=== PATIENT | female | born 1945 | race Caucasian/White ===

== ENCOUNTER 2018-02-21 12:03 | Outpatient (CLI) | payer MEDICARE | END 2018-02-21 12:04 | disposition home or self-care (01) | LOC: BICMAMMO 12:03 | PROVIDERS: ATTEND Family Medicine | DX: Z12.31 Encounter for screening mammogram for malignant neoplasm of breast (principal); R92.1 Mammographic calcification found on diagnostic imaging of breast; Z80.3 Family history of malignant neoplasm of breast | CPT/HCPCS: 77063; 77067 ==

== ENCOUNTER 2018-03-02 13:00 | Outpatient (CLI) | payer MEDICARE ==
--- NOTE | 2018-03-02 14:01 | ULT ---
PELVIC ULTRASOUND: Date: 03/02/18 HISTORY: Pelvic pain. Examination was performed transabdominally. The patient did not want endovaginal exam. FINDINGS: The patient has a history of hysterectomy and right oophorectomy. Left ovary is never definitely visu alized on this study. No pelvic masses or fluid collections. The bladder is incompletely distended at the time of this exam. IMPRESSION: Postop hysterectomy change. Neither right nor left ovary identified. POS: [facility]
== END 2018-03-02 13:01 | disposition home or self-care (01) ==
LOC: SCSULT 13:00
PROVIDERS: ATTEND Family Medicine
DX: R10.2 Pelvic and perineal pain (principal); Z90.710 Acquired absence of both cervix and uterus
CPT/HCPCS: 76857

== ENCOUNTER 2018-03-30 13:59 | Observation (INO) | payer MEDICARE ==
--- NOTE | 2018-03-30 14:47 | CT ---
CT HEAD NONCONTRAST DATE: 03/30/18 HISTORY: Altered mental status. COMPARISON: 07/11/08. FINDINGS: There is no evidence of acute intracranial hemorrhage or infarct. Mild diffuse cortical atrophy is ap parent. There is no mass effect or shift of midline structures. Minimal mucosal thickening right maxi llary sinus. IMPRESSION: No acute intracranial abnormalities are demonstrated on noncontrast CT head. POS: [facility]
[2018-03-30 15:01] LABS: ALT (SGPT) 32 U/L (8-55); AST (SGOT) 36 U/L (5-34); Albumin 4.2 g/dL (3.4-4.8); Alkaline Phosphatase 89 U/L (40-150); Anion Gap 17 mmol/L (10-20); BUN (Urea Nitrogen) 15 mg/dL (9.8-20.1); Bilirubin, Total 0.5 mg/dL (0.2-1.2); CK (CPK) 89 U/L (29-168); Calc. Creatinine Clearance 0 mL/min (70-130); Calcium 9.2 mg/dL (7.8-10.44); Carbon Dioxide 23 mmol/L (23-31); Chloride 104 mmol/L (98-107); Estimated GFR-MDRD 77; Globulin 2.8 g/dL (2.4-3.5); Glucose 140 mg/dL (83-110); Potassium 3.7 mmol/L (3.5-5.1); Sodium 140 mmol/L (136-145)
[2018-03-30 15:04] LABS: CKMB 1.6 ng/mL (0-6.6); Troponin I Less than 0.010 ng/mL (< 0.028)
[2018-03-30 15:14] LABS: Hemoglobin 14.1 g/dL (12.0-16.0); Large Platelets SLIGHT; Lymphocytes 35 % (21-51); MDiff Complete? YES; Mean Corpuscular HGB CONC 34.3 g/dL (32.0-36.0); Mean Corpuscular Hemoglobin 31.1 pg (27.0-31.0); Mean Corpuscular Volume 90.6 fl (81.0-99.0); Mean Platelet Volume 9.8 fL (7.4-10.4); Monocytes 8 % (0-10); Neutrophil 56 % (42-75); PLT Morphology Comment Appears Adequate; Platelet Count 144 thou/uL (130-400); RBC Distribution Width 12.1 % (11.5-14.5); Red Blood Cell (RBC) Count 4.55 mill/uL (4.20-5.40); White Blood Cell (WBC) Count 7.2 thou/uL (4.8-10.8)
[2018-03-30 18:03] VITALS: BMI 23.3
[2018-03-30] MEDS ORDERED: Acetaminophen 325 MG TAB PO PRN (19:34)
[2018-03-30] MEDS ORDERED: Zolpidem Tartrate 5 MG TAB PO PRN (19:34)
[2018-03-30] MEDS ORDERED: Enalaprilat Dihydrate 1.25 MG/ML VIAL SLOW IVP PRN (19:34)
[2018-03-30] MEDS ORDERED: HumaLOG 300 UNITS/3 ML VIAL SC PRN ×2 (19:34)
[2018-03-30] MEDS ORDERED: Dextrose 50% Abboject 50 ML SYRINGE SLOW IVP PRN (19:34)
[2018-03-30] MEDS ORDERED: Ondansetron ODT 4 MG TAB PO PRN (19:34)
[2018-03-30] MEDS ORDERED: Dextrose 5% in Water 1,000 ML IV PRN (19:34)
[2018-03-30] MEDS ORDERED: Mag-Al 1200 mg/1200 mg/30 ML UDCUP PO PRN (19:34)
[2018-03-30] MEDS ORDERED: Melatonin 3 MG TAB PO PRN (19:34)
[2018-03-30] MEDS: cycloSPORINE 0.05% Ophthalmic Droperette EA EYE SCH (20:29)
[2018-03-30] MEDS ORDERED: Atorvastatin Calcium 40 MG TAB PO SCH (21:00)
--- NOTE | 2018-03-31 02:31 | HP ---
PRIMARY CARE PHYSICIAN: Dr. Kirsten Murrell. CHIEF COMPLAINT: Heaviness and numbness in the right arm. HISTORY OF PRESENT ILLNESS: Ms. Radford is a very pleasant 72-year-old female who has a history of hypertension as well as diabetes mellitus. She says she also has labile hypertension. She says that her blood pressure was elevated last night and she had been instructed by Dr. Velazquez to take a nifed ipine and additional nifedipine at night when it is elevated. She has been doing this for years and then she woke up this morning and she says shortly after getting up, she felt heaviness in her right arm and discontinued. She took her blood pressure and it was on the lower side, it was 103/60. She took her usual medications and then checked her blood pressure a bit later. It was still low at 105/ 65. She called Dr. Velazquez and by the time his office called back her blood pressure was even lower a t 95/59. Her arm was continuing to feel heavy. She also felt lightheaded and they told her to come to the emergency room for evaluation. In the ER, they did a CT scan of her head, which was negative and have referred her for admission. She denies having any chest pain or palpitations and she denies any weakness in any of her other extremities. REVIEW OF SYSTEMS: Constitutional: There has been no fevers, chills, no night sweats, no weight los s. HEENT: No headaches, but she did feel lightheaded. No sore throat, rhinorrhea, neck pain, no ad enopathy. Pulmonary: No hemoptysis, no cough, no wheezing. Cardiovascular: She denies any chest p ain. No shortness of breath, no PND, no orthopnea. Gastrointestinal: No abdominal pain, no nausea, no vomiting, no change in bowels. Genitourinary: No urinary frequency, hematuria, no hesitancy. N eurologic: As stated in the history of present illness. Skin and Integument: No skin changes. No r mallika. Psychiatric: No symptoms of anxiety or depression. PAST MEDICAL HISTORY: Significant for hypertension, hyperlipidemia, diabetes mellitus, osteoarthriti s, and hypothyroidism. PAST SURGICAL HISTORY: She has had cataract surgery, cholecystectomy, right shoulder surgery, rotato r cuff surgery, and breast biopsy x2. FAMILY HISTORY: Significant for heart disease in her father. SOCIAL HISTORY: She is . She is a former smoker. She quit over 30 [address] ago[address] No illicit dr ug use. She occasionally drinks a glass of beer or wine. MEDICATIONS: Include metformin 500 mg twice a day, Lovaza 2 grams daily, Evista 60 mg daily, Restasi s, levothyroxine 100 mcg daily, nifedipine 30 mg as needed, enalapril 20 mg daily, garlic 1 tablet da subhash, aspirin 81 mg daily, amitriptyline 10 mg daily, and melatonin 3 mg as needed. PHYSICAL EXAMINATION: GENERAL: She is alert and oriented. VITAL SIGNS: Her blood pressure was 142/80 and I checked it manually, heart rate was 68, respiratory rate is 16, temperature is 98.5. HEENT: Her pupils are equal, round, and reactive. Extraocular muscles are intact. Her sclerae anic teric. Throat no erythema, no exudates. NECK: No adenopathy, no bruits. LUNGS: Clear to auscultation. No wheezing, no rales. CARDIOVASCULAR: She had a normal S1, S2. I did not appreciate any S3 or S4. No murmurs, clicks, no rubs. ABDOMEN: Soft, nontender, nondistended. Positive for bowel sounds. There is no rebound or guarding . EXTREMITIES: There is no clubbing, cyanosis, no edema. NEUROLOGICALLY: She had 5/5 muscle strength in both her upper and lower extremities, however, on the right. 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 EXTREMITIES: There is no skin changes, but she did have some trace pedal edema. LABORATORY DATA: Sodium was 140, potassium 3.7, chloride is 104, CO2 is 23, BUN is 15, creatinine 0. 74, glucose was 140. AST was 36. White blood cell count 7.2, hemoglobin 14.1, hematocrit is 41.2, p latelet count is 144. CT scan of the brain was negative and EKG was sinus rhythm and the rate was [address] wave changes. ASSESSMENT AND PLAN: This is a pleasant 72-year-old female who presents with right-sided weakness, w hich is very subtle, but detectable. She has multiple risk factors for cerebrovascular disease. The refore, she will be placed in observation and we will get an MRI to determine whether or not there leigh s been a stroke since her symptoms are persistent and get a carotid Doppler as well as an echo and mo nitor her on telemetry for atrial fibrillation. She will be treated with aspirin daily and we will a lso allow some degree of permissive hypertension and try to avoid excessively low blood pressures. Chuckie foreman will therefore restart her usual medications, but only treat symptomatically for hypertension if th e systolic goes above 180. She will also be placed on a sliding scale insulin. However, we will be holding the metformin and further recommendations will be to follow.
[2018-03-31 04:56] LABS: #Basophils 0.1 thou/uL (0.0-0.2); #Eosinphils 0.3 thou/uL (0.0-0.7); #Monocytes 0.7 thou/uL (0.11-0.59); #Neutrophils 2.3 thou/uL (1.40-6.50); %Basophils 1.3 % (0.0-1.0); %Eosinophils 4.6 % (0.0-10.0); %Lymphocytes 46.7 % (21.0-51.0); %Monocytes 11.7 % (0.0-10.0); %Neutrophils 35.8 % (42.0-75.0); Hemoglobin 13.2 g/dL (12.0-16.0); Mean Corpuscular HGB CONC 33.1 g/dL (32.0-36.0); Mean Corpuscular Hemoglobin 30.3 pg (27.0-31.0); Mean Corpuscular Volume 91.5 fl (81.0-99.0); Mean Platelet Volume 7.9 fL (7.4-10.4); Platelet Count 145 thou/uL (130-400); RBC Distribution Width 11.9 % (11.5-14.5); Red Blood Cell (RBC) Count 4.34 mill/uL (4.20-5.40); White Blood Cell (WBC) Count 6.3 thou/uL (4.8-10.8)
[2018-03-31 05:17] LABS: Anion Gap 12 mmol/L (10-20); BUN (Urea Nitrogen) 12 mg/dL (9.8-20.1); Calc. Creatinine Clearance 73 mL/min (70-130); Calcium 8.7 mg/dL (7.8-10.44); Carbon Dioxide 27 mmol/L (23-31); Cardiac Risk 4.4 (Less than 4.5); Chloride 104 mmol/L (98-107); Cholesterol 173 mg/dl (< 200 Desired); Estimated GFR-MDRD 88; Glucose 123 mg/dL (83-110); HDL Cholesterol 39 mg/dL (>60 Neg Risk); LDL Cholesterol, Calculated 96 mg/dL; Potassium 3.4 mmol/L (3.5-5.1); Sodium 140 mmol/L (136-145); Triglycerides 190 mg/dL (Less than 150)
[2018-03-31] MEDS ORDERED: Levothyroxine Sodium 100 MCG TAB PO SCH (06:00)
[2018-03-31] MEDS ORDERED: Bisoprolol Fumarate/HCTZ 10 mg/6.25 mg Tablet PO SCH (09:00)
[2018-03-31] MEDS ORDERED: Aspirin 325 mg Enteric Coated Tablet PO SCH (09:00)
[2018-03-31] MEDS ORDERED: Enoxaparin Sodium 40 MG/0.4 ML SYRINGE SC SCH (09:00)
[2018-03-31] MEDS ORDERED: Amitriptyline HCl 10 MG TAB PO SCH (09:00)
--- NOTE | 2018-03-31 09:25 | ULT ---
CAROTID DUPLEX SONOGRAM: HISTORY: TIA. Vascular disease. FINDINGS: RIGHT: Color and spectral Doppler evaluation, peak systolic velocity of 89 cm/s, and IC to CC ratio of 1.2 s uggests no hemodynamically significant stenosis within the extracranial right ICA. Antegrade flow wi thin the vertebral artery. LEFT: Minimal plaque. Color and spectral Doppler evaluation, peak systolic velocity of 76 cm/s, and IC to CC ratio of 1.0 suggests no hemodynamically significant stenosis within the extracranial left ICA. A ntegrade flow within the vertebral artery. IMPRESSION: Minimal plaque. No sonographic evidence of significant extracranial internal carotid artery stenosis . POS: [facility]
[2018-03-31] MEDS: cycloSPORINE 0.05% Ophthalmic Droperette EA EYE SCH (10:02)
--- NOTE | 2018-03-31 10:56 | MRI ---
MRI BRAIN: HISTORY: Hypertension. TIAs. FINDINGS: Noncontrast enhanced MRI images brain obtained. Multiplanar, multisequence noncontrast-enhanced MRI images of the brain demonstrate diffuse cortical atrophy. No evidence of acute intracranial masses, hemorrhages, strokes, or contusions seen. Ventricles are o f normal size. IMPRESSION: Some cortical atrophy; otherwise, unremarkable noncontrast enhanced MRI images of the brain. POS: [facility]
[2018-03-31 11:19] VITALS: BP 140/73; TEMP 98.2
--- NOTE | 2018-03-31 12:51 | CON ---
DATE OF CONSULTATION: 03/30/2018 CONSULTING PHYSICIAN: Hospitalist Service. IMPRESSION: 1. Possible small vessel stroke. 2. Hypertension. 3. Hyperlipidemia. PLAN: 1. Continue aspirin. 2. Add statin. 3. MRI of the brain. 4. Review echo and carotid Doppler when available. HISTORY OF PRESENT ILLNESS: She is a 72-year-old white female with a past history of hypertension. She is followed by Dr. Velazquez for this. She awoke yesterday and noted that her blood pressure was lo wer than normal. She also had a sensation that the left arm was heavy and a bit numb. She did not n otice any weakness in the leg or slurred speech. Her symptoms seemed to last throughout the day. Raya foreman came into the hospital for evaluation. Her initial CT scan of the brain was negative. She continu es to have some less significant symptoms today. She denies any recent transient neurologic symptoms otherwise. She had a stroke workup several years ago and reportedly was negative. She does not rep ort any headache, nausea, vomiting, vertigo, double vision, difficulty swallowing or alteration of co nsciousness. PAST MEDICAL HISTORY: Hypertension. ALLERGIES: AMOXICILLIN, LIDOCAINE, DEMEROL. FAMILY HISTORY: Noncontributory. SOCIAL HISTORY: No tobacco or alcohol use. REVIEW OF SYSTEMS: Otherwise, negative. PHYSICAL EXAMINATION: GENERAL: She is a healthy-appearing woman, in no distress. VITAL SIGNS: Blood pressure 134/71, pulse 69, respirations 20, temperature 98.4. HEENT: Pupils equal and reactive. Conjunctivae clear. Oropharynx clear. NECK: Supple, no lymphadenopathy. EXTREMITIES: No cyanosis. NEUROLOGIC: She is alert and appropriate. Her speech is fluent and clear. Cranial nerves were inta ct. Motor exam showed symmetric piece worker strength and no fix or drift. Sensation was subjectively decre ased in the right arm as compared to the left and symmetric. There was equal sensation in the lower extremities. Plantar responses were downgoing. No abnormal movements were seen. Gait was not teste d. LABORATORY STUDIES: CBC and serum chemistries were unremarkable. Her cholesterol ratio was 4.4. Carotid ultrasound, echocardiogram, and MRI of the brain are pending. SUMMARY: This is a 72-year-old woman with past history of hypertension and has some focal complaints on the right side suggesting the possibility of a small vessel stroke. We will review her studies when available.
--- NOTE | 2018-03-31 13:51 | PDOC.PN ---
- Subjective Encounter Start Date: 03/31/18 Encounter Start Time: 13:48 Ms. Radford was seen today in follow-up. She does not have any complaints. she says the heavy feeling in her arm has resolved. No new complaints. - Objective Resuscitation Status: Resuscitation Status FULL:Full Resuscitation MAR Reviewed: Yes Vital Signs & Weight: Vital Signs (12 hours) Temp Pulse Resp BP Pulse Ox 03/31/18 11:09 98.2 F 62 15 140/73 95 03/31/18 08:35 98.4 F 69 20 03/31/18 07:36 98.4 F 69 20 134/71 97 03/31/18 03:16 97.8 F 63 18 135/67 99 Weight Weight 136 lb I&O: 03/30/18 03/31/18 04/01/18 06:59 06:59 06:59 Intake Total 120 Output Total 1200 Balance -1080 Result Diagrams: 03/31/18 04:28 03/31/18 04:28 Additional Labs: Accuchecks 03/31/18 03/31/18 03/30/18 10:31 05:39 20:51 POC Glucose 162 H 112 H 193 H Phys Exam - Physical Examination HEENT: PERRLA Respiratory: no wheezing, no rales, no rhonchi, clear to auscultation bilateral Cardiovascular: RRR, no significant murmur, no rub Gastrointestinal: soft, non-tender, positive bowel sounds Musculoskeletal: no edema Dx/Plan (1) Transient ischemic attack Status: Acute (2) Dyslipidemia Code(s): E78.5 - HYPERLIPIDEMIA, UNSPECIFIED Status: Acute (3) Hypertension Code(s): I10 - ESSENTIAL (PRIMARY) HYPERTENSION Status: Acute - Plan * TIA- MRI was negative, and carotid dopplers were negative for any flow limiting disease * Dyslipidemia- will start Lipitor * HTN- has been well controlled * Stable for discharge home.
--- NOTE | 2018-03-31 20:02 | DIS ---
PRIMARY CARE PHYSICIAN: Kirsten Murrell M.D. DATE OF ADMISSION: 03/30/2018 DATE OF DISCHARGE: 03/31/2018 DISCHARGE DISPOSITION: Home. DISCHARGE DIAGNOSES: 1. Transient ischemic attack. 2. Dyslipidemia. 3. Hypertension. 4. History of osteoarthritis. 5. History of hypothyroidism. DISCHARGE MEDICATIONS: Include aspirin was increased to 325 mg daily, Lipitor 10 mg daily. She is t o continue Ambien 5 mg p.o. at bedtime as needed, Restasis twice a day, Evista 60 mg daily, prednison e 10 mg daily, Lovaza 2 grams daily, nifedipine XL 30 mg as needed, metformin 500 mg twice a day, anastasia atonin 3 mg as needed, levothyroxine 100 mcg daily, garlic 1 tablet daily, gabapentin 100 mg twice a day, enalapril 20 mg daily, Citrucel 500 mg twice daily, Ziac 10/6.25 mg daily, and Lipitor 10 mg danna ly. CODE STATUS: FULL CODE. ALLERGIES: AMOXICILLIN, LIDOCAINE, and MEPERIDINE. PROCEDURES DONE DURING ADMISSION: The patient had a CT scan of the brain, which was negative for any acute intracranial abnormalities. The patient also had bilateral carotid Dopplers, which there was minimal plaque. There was no evidence of any significant stenosis. Also had an MRI of the brain liam wing some cortical atrophy, otherwise negative. HOSPITAL COURSE: Ms. Radford is a very pleasant 72-year-old female, who presented to the emergency room with complaints of heaviness and numbness in the right upper extremity. She also noted some lab ile blood pressures as well. She was brought in under observation and underwent an MRI of the brain, as well as carotid Dopplers and an echocardiogram. MRI was negative for stroke and the carotid Dopp lers did not demonstrate any flow-limiting disease. The echo is pending at the time of discharge. H er symptoms resolved the following day and given the negative MRI results, she will be discharged alfredito e; however, her aspirin dose will be increased to 325 and she will be discharged home on a statin bec ause her LDL was 99. She had some reluctance to use a statin, but says she will go ahead and try it and discuss continuing with Dr. Velazquez. She is to follow up with Dr. Kirsten Murrell in one week.
== END 2018-03-31 14:38 | disposition home or self-care (01) ==
LOC: SCSER 13:59 → 2SE 15:26
PROVIDERS: ADMIT Internal Medicine; ATTEND Internal Medicine
DX: G45.9 Transient cerebral ischemic attack, unspecified (principal); I10 Essential (primary) hypertension; E11.9 Type 2 diabetes mellitus without complications; E78.5 Hyperlipidemia, unspecified; M19.90 Unspecified osteoarthritis, unspecified site; E03.9 Hypothyroidism, unspecified; Z87.891 Personal history of nicotine dependence; Z88.0 Allergy status to penicillin; Z88.8 Allergy status to other drugs, medicaments and biological substances; Z88.5 Allergy status to narcotic agent; Z79.84 Long term (current) use of oral hypoglycemic drugs; Z79.899 Other long term (current) drug therapy; Z79.82 Long term (current) use of aspirin
CPT/HCPCS: 70450; 70551; 80048; 80053; 80061; 82550; 82553; 82962 ×2; 84484; 85025 ×2; 93005; 93306; 93880; 99285; G0378; 36415; 36416; J1650

== ENCOUNTER 2018-07-31 13:32 | Outpatient (CLI) | payer MEDICARE ==
[~2018-07-31 13:32] MED LIST: Iopamidol 370 76% 100 ML VIAL ONE
--- NOTE | 2018-07-31 17:50 | CT ---
CT ABDOMEN AND PELVIS: 07/31/18 HISTORY: Lower abdominal pain. History of diverticulitis. Diarrhea. COMPARISON: 05/12/16. FINDINGS: There is an approximately 9 mm irregular nodular density seen at the right lung base with adjacent li near densities. The nodularity was not appreciated on the prior exam in 2016 although a few linear an d slight reticulonodular densities were present. Lung bases are otherwise clear. Cholecystectomy changes. Right adrenal nodule again seen and stable in size and shown to represent an adrenal adenoma on prior study in 2016. Subcentimeter too small to characterize hypodense lesions are seen in the left kidney. Liver demonstrates diminished attenuation relative to the spleen, likely related to mild fatty infilt ration. The spleen, pancreas, left adrenal gland, right kidney, and incompletely distended urinary bladder de monstrate a normal CT appearance. Vascular calcifications seen in the abdominal aorta. There is evidence of hysterectomy again present. Multiple phleboliths are present in the pelvis. Opacified small bowel is normal in caliber. The appendix is visualized and normal in caliber and fill s a small amount of contrast. There is colonic diverticulosis. No definite colonic wall thickening is appreciated. However, there i s mild inflammatory changes seen within the lower pelvis just superior to the level of the sigmoid co higinio. The exact etiology for mild inflammatory change is uncertain. Early diverticulitis cannot be ent irely excluded. No definite bowel wall thickening is present. There is no free fluid, fluid collectio n, or free intraperitoneal gas seen in the abdomen or pelvis. Degenerative changes seen in the spine. IMPRESSION: 1. There is an irregular nodular density measuring 9 mm in the right lower lobe with adjacent li near densities. There were reticulonodular densities seen in this region on the prior study and this could be related to chronic inflammatory changes, but pulmonary nodule cannot be entirely excluded. F ollowup CT thorax in 4 to 6 months is recommended. 2. Nonspecific and minimal inflammatory stranding in the lower pelvis. There is colonic divertic ulosis, but there are no findings to suggest that this minimal inflammatory stranding is related to d iverticulitis. 3. No CT evidence of appendicitis. 4. Stable right adrenal adenoma. 5. Mild fatty infiltration of the liver. 6. Postsurgical changes related to cholecystectomy and hysterectomy. POS: [facility]
== END 2018-07-31 13:33 | disposition home or self-care (01) ==
LOC: SCSCT 13:32
PROVIDERS: ATTEND Family Medicine
DX: K57.32 Diverticulitis of large intestine without perforation or abscess without bleeding (principal); D35.01 Benign neoplasm of right adrenal gland; R91.8 Other nonspecific abnormal finding of lung field; K76.0 Fatty (change of) liver, not elsewhere classified; Z90.49 Acquired absence of other specified parts of digestive tract; Z90.710 Acquired absence of both cervix and uterus
CPT/HCPCS: 74177

== ENCOUNTER 2019-02-28 13:25 | Outpatient (CLI) | payer MEDICARE ==
--- NOTE | 2019-02-28 14:45 | MMO ---
Bilateral MAMMO Bilat Screen [facility]. CLINICAL HISTORY: Patient is 73 years old and is seen for screening. The patient has the following family history of breast cancer: sister, at age 50. The patient has no personal history of cancer. The patient has a history of right Excisional Biopsy in 2003 - benign and right cyst aspiration in 1998 - benign. VIEWS: The views performed were: bilateral craniocaudal with tomosynthesis and bilateral mediolateral oblique with tomosynthesis. FILMS COMPARED: The present examination has been compared to prior imaging studies performed at [facility] on 11/25/2013, 11/26/2014, 12/29/2015, 12/30/2016 and 02/21/2018. MAMMOGRAM FINDINGS: The breasts are heterogeneously dense, which could obscure a lesion on mammography. There are stable benign appearing calcifications seen in both breasts. There are no suspicious masses, suspicious calcifications, or new areas of architectural distortion. IMPRESSION: THERE IS NO MAMMOGRAPHIC EVIDENCE OF MALIGNANCY. A ROUTINE FOLLOW-UP MAMMOGRAM IN 1 YEAR IS RECOMMENDED. THE RESULTS OF THIS EXAM WERE SENT TO THE PATIENT. ACR BI-RADS Category 2 - Benign finding MAMMOGRAPHY NOTE: 1. A negative mammogram report should not delay a biopsy if a dominant of clinically suspicious mass is present. 2. Approximately 10% to 15% of breast cancers are not detected by mammography. 3. Adenosis and dense breasts may obscure an underlying neoplasm.
== END 2019-02-28 13:26 | disposition home or self-care (01) ==
LOC: BICMAMMO 13:25
PROVIDERS: ATTEND Family Medicine
DX: Z12.31 Encounter for screening mammogram for malignant neoplasm of breast (principal); Z80.3 Family history of malignant neoplasm of breast
CPT/HCPCS: 77063; 77067

== ENCOUNTER 2019-10-22 20:25 | Emergency (ER) | payer MEDICARE ==
[2019-10-22] MEDS ORDERED: Morphine 4 MG/ML VIAL ONE ×2 (21:03→21:31)
[2019-10-22] MEDS ORDERED: Ondansetron PF 4 MG/2 ML Vial ONE ×2 (21:04→22:42)
[2019-10-22 21:10] LABS: #Basophils 0.1 thou/uL (0.0-0.2); #Eosinphils 0.3 thou/uL (0.0-0.7); #Monocytes 0.7 thou/uL (0.11-0.59); #Neutrophils 2.6 thou/uL (1.40-6.50); %Basophils 2.1 % (0.0-1.0); %Eosinophils 5.1 % (0.0-10.0); %Monocytes 12.8 % (0.0-10.0); %Neutrophils 45.1 % (42.0-75.0); Hemoglobin 14.6 g/dL (12.0-16.0); Mean Corpuscular HGB CONC 35.9 g/dL (32.0-36.0); Mean Corpuscular Hemoglobin 32.9 pg (27.0-31.0); Mean Corpuscular Volume 91.8 fL (78.0-98.0); Mean Platelet Volume 7.9 fL (7.4-10.4); Platelet Count 172 thou/uL (130-400); Red Blood Cell (RBC) Count 4.42 mill/uL (4.20-5.40); White Blood Cell (WBC) Count 5.7 thou/uL (4.8-10.8)
[2019-10-22 21:13] LABS: Bacteria/HPF None Seen HPF (None Seen); Bilirubin Negative (Negative); Blood, Urine 2+ (Negative); Clarity Clear (Clear); Glucose, Urine (Dipstick) 70 mg/dL (Negative); Leukocyte Negative Leu/uL (Negative); Mucous/LPF Rare LPF (<2+); Nitrite Negative (Negative); Protein, Urine (Dipstick) 20 mg/dL (Neg-Trace); Squamous Epithelial None Seen HPF (0-3); Urobilinogen Normal mg/dL (Less than 2); WBC/HPF 0-3 HPF (0-3)
--- NOTE | 2019-10-22 21:20 | RAD ---
EXAM: Portable chest PROVIDED CLINICAL HISTORY: Cough COMPARISON: None FINDINGS: Cardiac and mediastinal silhouette is within normal limits. No focal consolidation, pleural fluid or pneumothorax evident. IMPRESSION: No evidence for an acute cardiopulmonary process.
[2019-10-22 21:33] LABS: ALT (SGPT) 19 U/L (8-55); AST (SGOT) 22 U/L (5-34); Albumin 4.4 g/dL (3.4-4.8); Alkaline Phosphatase 84 U/L (40-110); Anion Gap 13 mmol/L (10-20); BUN (Urea Nitrogen) 17 mg/dL (9.8-20.1); Bilirubin, Total 0.3 mg/dL (0.2-1.2); Calc. Creatinine Clearance 0 mL/min (70-130); Calcium 9.1 mg/dL (7.8-10.44); Carbon Dioxide 26 mmol/L (23-31); Chloride 103 mmol/L (98-107); Estimated GFR-MDRD 65; Globulin 2.7 g/dL (2.4-3.5); Glucose 193 mg/dL (83-110); Lipase 33 U/L (8-78); Potassium 3.8 mmol/L (3.5-5.1); Protein, Total 7.1 g/dL (6.0-8.3); Sodium 138 mmol/L (136-145)
--- NOTE | 2019-10-22 22:28 | CT ---
EXAM: CT Stone Protocol PROVIDED CLINICAL HISTORY: Left flank pain COMPARISON: 07/31/2018 FINDINGS: 14 mm pulmonary nodule peripherally within the right lower lobe is demonstrated. This demonstrates in terval increase in size with respect to the prior examination. The solid abdominal organs are suboptimally evaluated in the absence of IV contrast material. There i s mild left hydronephrosis and left hydroureter, with a 4 mm urinary bladder calculus noted. Nonobstructing calculus at the inferior pole of left kidney measures about 4 mm. No evidence for righ t-sided hydronephrosis. There is a stable right adrenal adenoma. The solid abdominal organs demonstrate an otherwise unremark able unenhanced CT appearance. There is no bowel dilatation, inflammatory fat stranding, free fluid or free air apparent. There is n o evidence for appendicitis. Vascular calcifications are seen. Changes of prior cholecystectomy are noted. The osseous structures demonstrate no concerning lytic or blastic lesions. IMPRESSION: 1. 4 mm urinary bladder calculus with residual left hydroureteronephrosis. Nonobstructing left renal calculus. 2. 14 mm right lower lobe pulmonary nodule suspicious for malignancy.
[2019-10-22] MEDS ORDERED: Ketorolac Tromethamine 30 MG/ML VIAL ONE (22:42)
== END 2019-10-22 23:39 | disposition home or self-care (01) ==
LOC: ERS 20:25
DX: N13.2 Hydronephrosis with renal and ureteral calculous obstruction (principal); E11.9 Type 2 diabetes mellitus without complications; E03.9 Hypothyroidism, unspecified; I10 Essential (primary) hypertension
CPT/HCPCS: 71045; 74176; 80053; 81003; 81015; 83690; 85025; 96361; 96374; 96375; 96376; J1885; J2270; J2405

== ENCOUNTER 2020-01-03 08:08 | Outpatient (CLI) | payer MEDICARE ==
--- NOTE | 2020-01-03 09:10 | MRI ---
MRI LUMBAR SPINE NONCONTRAST: HISTORY: Low back pain. COMPARISON: None. FINDINGS: Appropriate T1 marrow signal intensity of the lumbar vertebrae. Lumbar spine vertebral body height is maintained. No fracture. No significant T2 or STIR hyperintensity to suggest ligamentous injury or vertebral body edema from fracture. Intrinsic T1 and T2 hyperintensity at the L1-L2 and L4 vertebral bodies, compatible with osseous sana ngioma. Appropriate signal intensity of the visualized paraspinal muscles. Appropriate signal intensity of th e visualized solid organs, with the exception of the right adrenal gland. Mixed attenuation mass is noted. This lesion has been previously evaluated on a previous noncontrast CT from 10/22/2019. At aly t time, the lesion has attenuation coefficient of 10 Hounsfield units, favoring a benign adenoma. Conus medullaris terminates at the mid L1 level. T12-L1:Adequate disc hydration. Minimal left and right paracentral disc bulges. No significant centra l canal stenosis. Bilaterally, neural foramina are patent. L1-L2:Desiccation with moderate loss of disc space height. Minimal left and right paracentral disc bu lges without significant central canal stenosis. Bilaterally, neural foramina are patent. L2-L3:Adequate disc hydration. No significant loss of disc space height. Minimal left right paracentr al disc bulges, minimal ligament flavum thickening and facet hypertrophy. No significant central canal stenosis. Mild bilateral foraminal narrowing predominantly due to disc material. L3-L4:Adequate disc hydration. Broad-based disc bulge minimally flattens the thecal sac. Mild ligamen t flavum thickening and facet hypertrophy. No significant central canal stenosis. Bilaterally, neural foramina are patent. L4-L5:Adequate disc hydration. No significant loss of disc space height. Broad-based disc bulge, liga ment flavum thickening and facet hypertrophy result in mild central canal stenosis. There is fluid in both facet joints. Mild bilateral neural foraminal narrowing. L5-S1:Adequate disc hydration. No significant central canal stenosis. Mild ligament flavum thickening and facet hypertrophy. Moderate right neural foraminal narrowing. Left neural foramen is mildly narrowed. Based on the sagittal images, there does appear to be a broad-based disc bulge at T11-T12 without sig nificant central canal stenosis. IMPRESSION: 1. Benign adenoma in the right adrenal gland. 2. Degenerative changes lumbar spine as above. No significant central canal stenosis. Moderate right neural foraminal narrowing at L5-S1. Transcribed Date/Time: 01/03/2020 9:32 AM
== END 2020-01-03 08:09 | disposition home or self-care (01) ==
LOC: SCSMRI 08:08
PROVIDERS: ATTEND Neurological Surgery
DX: M54.5 Low back pain (principal); D35.01 Benign neoplasm of right adrenal gland; M47.816 Spondylosis without myelopathy or radiculopathy, lumbar region; M48.07 Spinal stenosis, lumbosacral region
CPT/HCPCS: 72148

== ENCOUNTER 2020-05-04 13:20 | Emergency (ER) | payer MEDICARE, OTHER ==
[2020-05-04] MEDS ORDERED: Ondansetron ODT 4 MG TAB ONE (13:46)
[2020-05-04] MEDS ORDERED: Ondansetron PF 4 MG/2 ML Vial ONE ×2 (13:46→17:28)
[2020-05-04 14:28] LABS: Hemoglobin 14.6 g/dL (12.0-16.0); Mean Corpuscular HGB CONC 32.8 g/dL (32.0-36.0); Mean Corpuscular Hemoglobin 30.7 pg (27.0-31.0); Mean Corpuscular Volume 93.6 fL (78.0-98.0); Mean Platelet Volume 8.3 fL (7.4-10.4); Platelet Count 127 thou/uL (130-400); RBC Distribution Width 12.1 % (11.5-14.5); Red Blood Cell (RBC) Count 4.75 mill/uL (4.20-5.40); White Blood Cell (WBC) Count 3.4 thou/uL (4.8-10.8)
[2020-05-04 14:38] LABS: ALT (SGPT) 33 U/L (8-55); AST (SGOT) 31 U/L (5-34); Albumin 4.1 g/dL (3.4-4.8); Alkaline Phosphatase 55 U/L (40-110); Anion Gap 15 mmol/L (10-20); BUN (Urea Nitrogen) 13 mg/dL (9.8-20.1); Bilirubin, Total 0.3 mg/dL (0.2-1.2); Calc. Creatinine Clearance 0 mL/min (70-130); Calcium 8.7 mg/dL (7.8-10.44); Carbon Dioxide 27 mmol/L (23-31); Chloride 98 mmol/L (98-107); Estimated GFR-MDRD 60; Glucose 102 mg/dL (83-110); Protein, Total 7.1 g/dL (6.0-8.3); Sodium 136 mmol/L (136-145)
[2020-05-04 14:43] LABS: Band 15 % (5-11); Lymphocytes 29 % (21-51); MDiff Complete? YES; Monocytes 11 % (0-10); Neutrophil 44 % (42-75); Platelet Morphology Comment Appears Decreased; RBC Morphology Normal; Reactive Lymphocytes 1 % (0-10)
[2020-05-04] MEDS ORDERED: Acetaminophen 500 MG TAB ONE (15:41)
--- NOTE | 2020-05-04 15:45 | RAD ---
EXAM: Single view of the chest HISTORY: Cough COMPARISON: 10/22/2019 FINDINGS: Single view of the chest shows a normal sized cardiomediastinal silhouette. There is no mckenna dence of consolidation, mass, or pleural effusion. Degenerative changes are seen in the spine. IMPRESSION: No evidence of acute cardiopulmonary disease
[2020-05-04] MEDS ORDERED: Morphine 2 MG/ML SYRINGE ONE (17:27)
[2020-05-04 18:01] LABS: Bacteria/HPF None Seen HPF (None Seen); Bilirubin Negative (Negative); Blood, Urine Negative (Negative); Clarity Clear (Clear); Glucose, Urine (Dipstick) Normal (Negative); Ketone, Urine 40 mg/dL (Negative); Leukocyte Negative Leu/uL (Negative); Nitrite Negative (Negative); Protein, Urine (Dipstick) 30 mg/dL (Neg-Trace); RBC/HPF 0-3 HPF (0-3); Specific Gravity, Urine 1.026 (1.002-1.036); Squamous Epithelial 0-3 HPF (0-3); Urobilinogen Normal mg/dL (Less than 2); WBC/HPF 0-3 HPF (0-3); pH, Urine 5.5 (5.0-9.0)
== END 2020-05-04 20:55 | disposition home or self-care (01) ==
LOC: ERS 13:20
DX: U07.1 COVID-19 (principal); E86.0 Dehydration; E11.9 Type 2 diabetes mellitus without complications; E03.9 Hypothyroidism, unspecified; I10 Essential (primary) hypertension; Z79.899 Other long term (current) drug therapy; Z79.84 Long term (current) use of oral hypoglycemic drugs
CPT/HCPCS: 51701; 71045; 80053; 81003; 81015; 85025; 93005; 96361; 96374; 96375; 96376; J2270; J2405; Q0162

== ENCOUNTER 2020-05-07 10:02 | Inpatient (IN) | payer MEDICARE, OTHER ==
--- NOTE | 2020-05-07 10:41 | RAD ---
XR Chest 1 View Portable History: Cough Comparison: Radiograph 3 days prior Findings: Faint linear opacities in lung bases. No pneumothorax. No effusion. Heart size is similar. No acute osseous abnormality. Impression: Faint linear opacities in lung bases may be the residua of recent COVID-19 infection.
[2020-05-07 11:06] LABS: #Lymphocytes 0.6 thou/uL (1.20-3.40); #Monocytes 0.3 thou/uL (0.11-0.59); #Neutrophils 1.3 thou/uL (1.40-6.50); %Eosinophils 0.5 % (0.0-10.0); %Lymphocytes 26.2 % (21.0-51.0); %Neutrophils 58.3 % (42.0-75.0); Hemoglobin 13.1 g/dL (12.0-16.0); Mean Corpuscular HGB CONC 32.7 g/dL (32.0-36.0); Mean Corpuscular Hemoglobin 31.2 pg (27.0-31.0); Mean Corpuscular Volume 95.2 fL (78.0-98.0); Mean Platelet Volume 7.8 fL (7.4-10.4); Platelet Count 123 thou/uL (130-400); Red Blood Cell (RBC) Count 4.22 mill/uL (4.20-5.40); White Blood Cell (WBC) Count 2.3 thou/uL (4.8-10.8)
[2020-05-07 11:07] LABS: Actual Bicarbonate (HCO3a) 23.6 mEq/L (22-28); Analyzer IN Cardio ER; Base Excess (BEa) -0.4 mEq/L (-2.0 to +3.0); CO2 Tension 36.4 mmHg (35.0-45.0); Hemoglobin (Hb) 13.6 g/dL (12.0-16.0); O2 Tension (PaO2), arterial 61.5 mmHg (> 70.0); Potassium - ABG Lab 3.36 mmol/L (3.70-5.30); pH, Arterial 7.43 (7.35-7.45)
[2020-05-07 11:10] LABS: Puncture Site RRA
[2020-05-07] MEDS ORDERED: Dexamethasone 10 MG/ML VIAL ONE (11:15)
[2020-05-07 11:40] LABS: ALT (SGPT) 37 U/L (8-55); AST (SGOT) 40 U/L (5-34); Albumin 3.5 g/dL (3.4-4.8); Alkaline Phosphatase 51 U/L (40-110); Anion Gap 16 mmol/L (10-20); BUN (Urea Nitrogen) 6 mg/dL (9.8-20.1); Bilirubin, Total 0.2 mg/dL (0.2-1.2); Calc. Creatinine Clearance 0 mL/min (70-130); Calcium 8.1 mg/dL (7.8-10.44); Carbon Dioxide 24 mmol/L (23-31); Chloride 101 mmol/L (98-107); Estimated GFR-MDRD 75; Globulin 2.8 g/dL (2.4-3.5); Glucose 189 mg/dL (83-110); Potassium 3.5 mmol/L (3.5-5.1); Protein, Total 6.3 g/dL (6.0-8.3); Sodium 137 mmol/L (136-145)
[2020-05-07] MEDS ORDERED: Iopamidol 370 76% 100 ML VIAL ONE (12:12)
--- NOTE | 2020-05-07 13:42 | CT ---
CT PULMONARY ANGIOGRAM WITH IV CONTRAST AND 3D POSTPROCESSIN05/07/20 HISTORY: 74-year-old female with worsening symptoms from COVID pneumonia and elevated D-dimer. Patient's husba nd is also positive for COVID-19 and is currently admitted to the hospital. Pulse ox dropped down to 86% at home. FINDINGS: There is good contrast opacification of the pulmonary artery vasculature without filling defects to s uggest pulmonary embolism. There are vascular calcifications without evidence of aneurysm or dissecti on of the thoracic aorta. No pleural or pericardial effusions are seen. There are mild patchy ground glass opacities bilaterally. There are degenerative changes in the spine. Upper abdominal tomograms d emonstrate a 2.3 cm right adrenal adenoma. IMPRESSION: 1. No CT evidence of pulmonary embolism. 2. COVID-19 pneumonia. POS: [facility]
[2020-05-07] MEDS ORDERED: Azithromycin 500 MG VIAL ONE (14:43)
[2020-05-07] MEDS ORDERED: Enoxaparin Sodium 60 MG/0.6 ML SYRINGE ONE (14:43)
[2020-05-07 15:10] LABS: INR-International Normal Ratio 0.9; PTT 33.4 sec (22.9-36.1); Prothrombin Time 12.3 sec (12.0-14.7)
[2020-05-07 15:27] LABS: Lactic Acid 1.9 mmol/L (0.5-2.2)
[2020-05-07 16:35] VITALS: BMI 23.3
[2020-05-07] MEDS ORDERED: Acetaminophen 325 MG TAB PO PRN (18:20)
[2020-05-07] MEDS ORDERED: Acetaminophen 650 MG Suppository PR PRN (18:20)
[2020-05-07] MEDS ORDERED: Dextrose 5% in Water 1,000 ML IV PRN (18:23)
[2020-05-07] MEDS ORDERED: Dextrose 50% Abboject 50 ML SYRINGE SLOW IVP PRN (18:23)
[2020-05-07] MEDS ORDERED: Benzonatate 100 MG CAP PO PRN (19:20)
[2020-05-07] MEDS ORDERED: Amlodipine 5 MG TAB PO PRN (19:42)
[2020-05-07] MEDS: Famotidine 20 MG TAB PO SCH (20:46)
[2020-05-07] MEDS: HumaLOG 300 UNITS/3 ML VIAL SC PRN (20:58)
[2020-05-07 22:39] LABS: Bacteria/HPF None Seen HPF (None Seen); Bilirubin Negative (Negative); Blood, Urine Negative (Negative); Clarity Clear (Clear); Glucose, Urine (Dipstick) Greater than 1000 mg/dL (Negative); Ketone, Urine 80 mg/dL (Negative); Leukocyte Negative Leu/uL (Negative); Nitrite Negative (Negative); Protein, Urine (Dipstick) 10 mg/dL (Neg-Trace); RBC/HPF 0-3 HPF (0-3); Specific Gravity, Urine 1.035 (1.002-1.036); Squamous Epithelial None Seen HPF (0-3); Urobilinogen Normal mg/dL (Less than 2); WBC/HPF 0-3 HPF (0-3); pH, Urine 6.5 (5.0-9.0)
[2020-05-07 22:44] LABS: Urine Culture Reflex No No
[2020-05-08] MEDS ORDERED: Melatonin 3 MG TAB PO PRN (01:18)
[2020-05-08 05:20] LABS: #Lymphocytes 0.8 thou/uL (1.20-3.40); #Monocytes 0.3 thou/uL (0.11-0.59); #Neutrophils 1.4 thou/uL (1.40-6.50); %Eosinophils 0.2 % (0.0-10.0); %Lymphocytes 33.3 % (21.0-51.0); %Monocytes 10.4 % (0.0-10.0); %Neutrophils 56.1 % (42.0-75.0); Hemoglobin 12.2 g/dL (12.0-16.0); Mean Corpuscular HGB CONC 32.6 g/dL (32.0-36.0); Mean Corpuscular Hemoglobin 30.5 pg (27.0-31.0); Mean Corpuscular Volume 93.5 fL (78.0-98.0); Mean Platelet Volume 8.1 fL (7.4-10.4); Platelet Count 139 thou/uL (130-400); RBC Distribution Width 11.9 % (11.5-14.5); Red Blood Cell (RBC) Count 3.99 mill/uL (4.20-5.40); White Blood Cell (WBC) Count 2.4 thou/uL (4.8-10.8)
[2020-05-08 05:32] LABS: Anion Gap 14 mmol/L (10-20); BUN (Urea Nitrogen) 9 mg/dL (9.8-20.1); CRP (Inflammatory) 7.85 mg/dL (= or < 0.5); Calc. Creatinine Clearance 81 mL/min (70-130); Calcium 7.7 mg/dL (7.8-10.44); Carbon Dioxide 26 mmol/L (23-31); Chloride 104 mmol/L (98-107); Estimated GFR-MDRD Greater than 90; Glucose 131 mg/dL (83-110); Potassium 3.5 mmol/L (3.5-5.1); Sodium 140 mmol/L (136-145)
--- NOTE | 2020-05-08 06:07 | HP ---
TIME OF ASSESSMENT: 1800 CHIEF COMPLAINT: Cough and hypoxia. PRIMARY CARE PHYSICIAN: Dr. Kirsten Murrell. HISTORY OF PRESENT ILLNESS: Ms. Radford is a 74-year-old woman, who presents to the emergency department due to having low oxygen levels when checking her sats at home. She had sats of 86% and after a few deep breaths, she could only get it up to 88%. She called her primary care physician, Dr. Murrell, who advised her to come in to the emergency department. The patient's was just recently admitted for COVID. The patient states she has been feeling unwell for the last two weeks with general weakness. Reports having a decreased appetite due to loss of taste and nausea. She has not had anything to eat in the last 2 to 3 days. Denies having any associated vomiting or abdominal discomfort. Reports having episode of loose stools recently, but denies any profuse diarrhea. Has not noted any blood in the stool. Patient reports having a persistent dry cough and becomes mildly short of breath whenever she has coughing fits as well as when she exerts herself. She feels completely drained and weak. She denies any hemoptysis. No chest pain. REVIEW OF SYSTEMS: All other review of systems are negative. EMERGENCY DEPARTMENT COURSE: In the emergent emergency department, she had sats of 94% on room air. She was noted to have a low-grade temperature of 99. She had a chest x-ray done demonstrating faint linear opacities in the lung bases, felt to represent recent COVID-[address] angiogram of the chest was done as well showing no CT evidence for pulmonary embolism. She was noted to have COVID-19 related pneumonia. Incidentally found to have a 2.3 cm right adrenal adenoma. Patient had an EKG done in the ED as well that showed a normal sinus rhythm with a heart rate of 77. No ST changes or T-wave abnormalities. Laboratory studies done were notable for low white count of 2.3, hemoglobin 13.1, and hematocrit 40.2. PT 12.3, INR 0.9, and PTT 33.4. D-dimer 1.22. BUN 6, creatinine 0.75, GFR 75, lactic acid 2.1, total bilirubin 0.2, AST 40, ALT 37, and alk phos 51. BNP 33.1, albumin 3.5. Troponin negative. Potassium 3.5. Blood gas was done showing O2 sat of 92.2, bicarb of 36.4, pH is 7.43. On the blood gas, potassium was 3.36. Patient was started on IV antibiotics with azithromycin and also given Decadron 10 mg IV. She received 1 L of normal saline and was also given Lovenox 1 mg/kg. PAST MEDICAL HISTORY: 1. Hypertension. 2. Diabetes mellitus. 3. Hypothyroidism. PAST SURGICAL HISTORY: 1. Cholecystectomy. 2. Hysterectomy. 3. Right carpal tunnel surgery. 4. Right rotator cuff surgery. 5. Breast biopsy x2. SOCIAL HISTORY: Patient reports drinking socially up to twice a month. Denies any tobacco use. No illicit drug use. ALLERGIES: 1. AMOXICILLIN. 2. DEMEROL. 3. LIDOCAINE. 4. MEPERIDINE. 5. MOXIFLOXACIN. CURRENT MEDICATIONS: 1. Gabapentin. 2. Bisoprolol. 3. Levothyroxine. 4. Raloxifene. 5. Amitriptyline. 6. Metformin. 7. Lisinopril. 8. Amlodipine. 9. Ezetimibe. 10. Aspirin. 11. Cyclobenzaprine. 12. Hydrochlorothiazide. 13. Magnesium. 14. Zofran. PHYSICAL EXAMINATION: GENERAL: Patient appears generally fatigued, but in no acute distress. VITAL SIGNS: Temperature 98.4, pulse 81, respirations 20, sat 96% on room air, and blood pressure 121/58. HEENT: Normocephalic and atraumatic. Pupils are equal, round, reactive to light. Sclerae without icterus. Oropharynx is clear. NECK: Supple. LUNGS: Clear to auscultation bilaterally, without any wheezes, rales, or rhonchi. CARDIAC: Regular rate and rhythm. ABDOMEN: Soft, nontender, and nondistended. Normoactive bowel sounds present. No guarding or rigidity. No renal angle tenderness. EXTREMITIES: No lower leg swelling or edema. NEUROLOGIC: Alert and oriented x3. SKIN: Warm and dry. INVESTIGATIONS: As mentioned above in HPI. IMPRESSION AND PLAN: Ms. Radford is a very pleasant 74-year-old woman, who recently tested positive for COVID and whose was recently discharged from the hospital after being admitted with COVID pneumonia, presenting with a persistent cough and low saturations at home. Patient has undergone imaging in the emergency department demonstrating changes consistent with COVID pneumonia. She is being admitted for management of the followin. Hypoxia. Saturations have improved and she is currently saturating at 96% on room air. As mentioned, CT imaging has shown changes consistent with COVID pneumonia. She has received IV antibiotics in the ED, which we will continue as well as the Decadron. We will add on vitamin C, D3 and zinc. We will check CRP and ferritin with morning labs. Consultation placed to Dr. Mason for further management. 2. Diarrhea. We will continue to monitor. If she has recurrent loose stools, we will check stool studies, including Clostridium difficile. We will add on magnesium to labs obtained. 3. Hypertension. Monitor blood pressure and reconcile home medications as appropriate. 4. Diabetes mellitus. Monitor blood glucose and initiate sliding scale. 5. Hypothyroidism. Resume home medications once verified. 6. Gastrointestinal prophylaxis with famotidine. 7. Deep venous thrombosis prophylaxis with enoxaparin. We will not continue full-dose Lovenox as patient was negative for PE on CT angiogram. 8. Code status. Full. Surrogate decision maker is her , Rickey Radford. Case discussed with attending, who agrees with plan of care as described above. Job ID: [id number]
[2020-05-08] MEDS ORDERED: Aspirin 81 mg Enteric Coated Tablet PO SCH (09:00)
[2020-05-08] MEDS ORDERED: Non-Formulary Item 1 EACH (Magnesium Oxide [Magnesium] 500 MG) PO SCH (09:00)
[2020-05-08] MEDS: Ezetimibe 10 MG TAB PO SCH (09:30)
[2020-05-08] MEDS: Amlodipine 5 MG TAB PO SCH ×2 (09:30→12:54)
[2020-05-08] MEDS: Bisoprolol Fumarate 5 MG TAB PO SCH ×2 (09:30→12:55)
[2020-05-08] MEDS: Cholecalciferol 1,000 UNITS (25 MCG) TAB PO SCH (09:30)
[2020-05-08] MEDS: Enoxaparin Sodium 40 MG/0.4 ML SYRINGE SC SCH ×2 (09:30→20:39)
[2020-05-08] MEDS: Famotidine 20 MG TAB PO SCH ×2 (09:31→20:40)
--- NOTE | 2020-05-08 12:14 | PDOC.HOSPP ---
- Subjective Encounter Date: 05/08/20 Encounter Time: 12:14 Subjective: Patient states she feels tired and was not able to get any sleep last night despite melatonin. Reports sleeping 45 min this morning. Continues with persistent dry cough and occasional coughing fits. Denies any hempotysis. She was afebrile overnight. No other complaints. - Objective Vital Signs & Weight: Vital Signs (12 hours) Temp Pulse Resp BP BP Pulse Ox 05/08/20 10:53 93 L 05/08/20 09:47 99 F 84 20 119/58 L 90 L 05/08/20 04:00 98.5 F 86 18 132/81 95 Weight Admit Weight 128 lb Weight 128 lb I&O: 05/07/20 05/08/20 05/09/20 06:59 06:59 06:59 Intake Total 660 Output Total 600 Balance 60 Result Diagrams: 05/08/20 04:54 05/08/20 04:54 Additional Labs: Accuchecks 05/08/20 05/07/20 05:54 20:56 POC Glucose 123 H 262 H Radiology Reviewed by me: Yes EKG Reviewed by me: Yes Hospitalist ROS - Review of Systems Constitutional: reports: other (fatigued). denies: fever, chills, sweats, weakness, malaise Eyes: denies: pain, vision change, conjunctivae inflammation, eyelid inflammation, redness, other ENT: denies: ear pain, ear discharge, nose pain, nose discharge, nose congestion , mouth pain, mouth swelling, throat pain, throat swelling, other Respiratory: reports: cough, dry, shortness of breath (improved from yesterday) Cardiovascular: denies: chest pain, palpitations, orthopnea, paroxysmal noc. dyspnea, edema, light headedness, other Gastrointestinal: denies: nausea, vomiting, abdominal pain, diarrhea, constipation, melena, hematochezia, other Genitourinary: denies: dysuria, frequency, incontinence, hematuria, retention, other Musculoskeletal: denies: neck pain, shoulder pain, arm pain, back pain, hand pain, leg pain, foot pain, other Skin: denies: rash, lesions, artur, bruising, other Neurological: denies: weakness, numbness, incoordination, change in speech, confusion, seizures, other - Medication Medications: Active Medications Generic Name Dose Route Start Last Admin Trade Name Freq PRN Reason Stop Dose Admin Aspirin 81 mg 05/08/20 09:00 05/08/20 09:30 Ecotrin PO 81 mg DAILY JODY Administration Cholecalciferol 1,000 units 05/08/20 09:00 05/08/20 09:30 Vitamin D3 PO 1,000 units DAILY JODY Administration Ezetimibe 10 mg 05/08/20 09:00 05/08/20 09:30 Zetia PO 10 mg DAILY JODY Administration Enoxaparin Sodium 40 mg 05/08/20 09:00 05/08/20 09:30 Lovenox SC 40 mg 0900,2100 JODY Administration Famotidine 20 mg 05/07/20 21:00 05/08/20 09:31 Pepcid PO 20 mg BID JODY Administration Insulin Human Lispro 0 units 05/07/20 18:23 05/07/20 20:58 Humalog SC 3 unit .BEDTIME SLIDING SC PRN Administration Bedtime Correctional Scale - Exam General Appearance: NAD Eye: PERRL, anicteric sclera ENT: normocephalic atraumatic, no oropharyngeal lesions Neck: supple, symmetric, no lymphadenopathy Heart: RRR, no murmur, normal peripheral pulses Respiratory: CTAB, no wheezes, no rales, no ronchi, normal chest expansion Respiratory - other findings: decreased at bases, unable to take deep breaths due to cough Gastrointestinal: soft, non-tender, non-distended, normal bowel sounds Extremities: no edema Skin: normal turgor, no lesions, no rashes Neurological: cranial nerve grossly intact Musculoskeletal: normal tone, normal strength Psychiatric: normal affect, normal behavior, A&O x 3 Hosp A/P (1) Elevated d-dimer Code(s): R79.89 - OTHER SPECIFIED ABNORMAL FINDINGS OF BLOOD CHEMISTRY Status : Acute Plan: CTA was negative for PE. Likely due to COVID+. Continue DVT prophylaxis and mechanical SCDs. (2) Pneumonia due to COVID-19 virus Code(s): U07.1 - COVID-19; J12.89 - OTHER VIRAL PNEUMONIA Status: Acute Plan: Continue abx and steroids. Awaiting ID consult Will obtain ABG. (3) Diabetes mellitus type 2 in nonobese Code(s): E11.9 - TYPE 2 DIABETES MELLITUS WITHOUT COMPLICATIONS Status: Chronic Plan: Continue home meds. Monitor glucose. ISS. (4) Hypothyroidism Code(s): E03.9 - HYPOTHYROIDISM, UNSPECIFIED Status: Chronic Plan: Continue home meds. (5) Essential hypertension Code(s): I10 - ESSENTIAL (PRIMARY) HYPERTENSION Status: Chronic Plan: Continue to monitor BP. - Plan continue antibiotics, PT/OT, incentive spirometry, DVT proph w/lovenox, DVT proph w/SCDs
[2020-05-08] MEDS: Lisinopril 10 MG TAB PO SCH ×2 (12:32→20:40)
[2020-05-08] MEDS: Gabapentin 100 MG CAP PO SCH ×2 (12:32→20:40)
[2020-05-08] MEDS: Magnesium Oxide 250 MG TAB PO SCH (12:33)
[2020-05-08] MEDS: Amitriptyline HCl 10 MG TAB PO SCH ×2 (12:33→22:30)
[2020-05-08] MEDS: Ascorbic Acid 500 mg Chewable Tablet PO SCH (12:34)
[2020-05-08] MEDS: Zinc Sulfate 220 MG CAP PO SCH (12:34)
[2020-05-08 14:47] LABS: Actual Bicarbonate (HCO3a) 24.6 mEq/L (22-28); Base Excess (BEa) 1.2 mEq/L (-2.0 to +3.0); CO2 Tension 35.2 mmHg (35.0-45.0); Calcium, Ionized (arterial) 1.12 mmol/L (1.12-1.30); Carboxyhemoglobin (COHb) 0.2 gm% (0.0-3.0); Hemoglobin (Hb) 13.3 g/dL (12.0-16.0); O2 Tension (PaO2), arterial 66.7 mmHg (> 70.0); Potassium - ABG Lab 3.15 mmol/L (3.70-5.30); pH, Arterial 7.46 (7.35-7.45)
[2020-05-08 14:48] LABS: Puncture Site RRAD
[2020-05-08] MEDS: Levothyroxine Sodium 100 MCG TAB PO SCH (14:48)
[2020-05-08] MEDS: Benzonatate 100 MG CAP PO SCH ×2 (17:16→20:40)
[2020-05-08] MEDS: Azithromycin 500 MG in Sodium Chloride 0.9% 250 ML 250 ML IVPB SCH (17:17)
[2020-05-08] MEDS: cycloSPORINE 0.05% Ophthalmic Droperette EA EYE SCH (20:41)
[2020-05-08] MEDS: HumaLOG 300 UNITS/3 ML VIAL SC PRN (20:53)
[2020-05-08] MEDS ORDERED: RESTASIS 0.05% EA EYE SCH (21:00)
[2020-05-08] MEDS ORDERED: Amitriptyline HCl 10 MG TAB PO SCH (21:15)
[2020-05-08] MEDS: diphenhydrAMINE 25 MG CAP PO PRN (21:18)
[2020-05-09 04:52] LABS: #Lymphocytes 1.6 thou/uL (1.20-3.40); #Monocytes 0.4 thou/uL (0.11-0.59); #Neutrophils 2.8 thou/uL (1.40-6.50); %Basophils 0.4 % (0.0-1.0); %Eosinophils 0.4 % (0.0-10.0); %Lymphocytes 32.3 % (21.0-51.0); %Monocytes 9.1 % (0.0-10.0); %Neutrophils 57.8 % (42.0-75.0); Hemoglobin 12.2 g/dL (12.0-16.0); Mean Corpuscular HGB CONC 32.1 g/dL (32.0-36.0); Mean Corpuscular Hemoglobin 30.1 pg (27.0-31.0); Mean Corpuscular Volume 93.6 fL (78.0-98.0); Mean Platelet Volume 7.8 fL (7.4-10.4); Platelet Count 196 thou/uL (130-400); RBC Distribution Width 12.1 % (11.5-14.5); Red Blood Cell (RBC) Count 4.05 mill/uL (4.20-5.40); White Blood Cell (WBC) Count 4.8 thou/uL (4.8-10.8)
[2020-05-09 05:08] LABS: Anion Gap 10 mmol/L (10-20); BUN (Urea Nitrogen) 7 mg/dL (9.8-20.1); Calc. Creatinine Clearance 70 mL/min (70-130); Carbon Dioxide 29 mmol/L (23-31); Chloride 105 mmol/L (98-107); Estimated GFR-MDRD Greater than 90; Glucose 91 mg/dL (83-110); Potassium 3.3 mmol/L (3.5-5.1); Sodium 141 mmol/L (136-145)
[2020-05-09] MEDS ORDERED: Potassium Chloride 20 MEQ TAB PO SCH (08:00)
[2020-05-09] MEDS: Enoxaparin Sodium 40 MG/0.4 ML SYRINGE SC SCH ×2 (08:32→21:21)
[2020-05-09] MEDS: Bisoprolol Fumarate 5 MG TAB PO SCH (08:32)
[2020-05-09] MEDS: Magnesium Oxide 250 MG TAB PO SCH (08:32)
[2020-05-09] MEDS: Benzonatate 100 MG CAP PO SCH ×3 (08:32→21:21)
[2020-05-09] MEDS: Zinc Sulfate 220 MG CAP PO SCH (08:33)
[2020-05-09] MEDS: Ezetimibe 10 MG TAB PO SCH (08:33)
[2020-05-09] MEDS: Cholecalciferol 1,000 UNITS (25 MCG) TAB PO SCH (08:33)
[2020-05-09] MEDS: Ascorbic Acid 500 mg Chewable Tablet PO SCH (08:33)
[2020-05-09] MEDS: Amlodipine 5 MG TAB PO SCH (08:34)
[2020-05-09] MEDS: Lisinopril 10 MG TAB PO SCH ×2 (08:34→21:21)
[2020-05-09] MEDS: Gabapentin 100 MG CAP PO SCH ×2 (08:34→21:21)
[2020-05-09] MEDS: Famotidine 20 MG TAB PO SCH ×2 (08:36→21:20)
[2020-05-09] MEDS ORDERED: Dexamethasone 4 mg/ml Vial SLOW IVP SCH (10:00)
[2020-05-09] MEDS ORDERED: Dexamethasone 10 MG/ML VIAL SLOW IVP SCH (10:00)
[2020-05-09] MEDS ORDERED: Ondansetron PF 4 MG/2 ML Vial IVP PRN (10:13)
[2020-05-09] MEDS: Azithromycin 500 MG in Sodium Chloride 0.9% 250 ML 250 ML IVPB SCH ×2 (17:20→22:32)
[2020-05-09] MEDS: HumaLOG 300 UNITS/3 ML VIAL SC PRN (18:02)
[2020-05-09] MEDS: Levothyroxine Sodium 100 MCG TAB PO SCH (18:03)
[2020-05-09] MEDS ORDERED: Amitriptyline HCl 10 MG TAB PO SCH (21:00)
[2020-05-09] MEDS ORDERED: Aspirin 81 mg Enteric Coated Tablet PO SCH (21:00)
[2020-05-09] MEDS: cycloSPORINE 0.05% Ophthalmic Droperette EA EYE SCH (22:03)
[2020-05-09] MEDS ORDERED: Azithromycin 250 MG TAB PO SCH (22:30)
[2020-05-09] MEDS: diphenhydrAMINE 25 MG CAP PO PRN (23:12)
[2020-05-10 05:43] LABS: #Lymphocytes 1.1 thou/uL (1.20-3.40); #Monocytes 0.6 thou/uL (0.11-0.59); #Neutrophils 2.5 thou/uL (1.40-6.50); %Basophils 0.4 % (0.0-1.0); %Eosinophils 0.2 % (0.0-10.0); %Lymphocytes 25.5 % (21.0-51.0); %Monocytes 14.4 % (0.0-10.0); %Neutrophils 59.5 % (42.0-75.0); Anion Gap 12 mmol/L (10-20); BUN (Urea Nitrogen) 12 mg/dL (9.8-20.1); Calc. Creatinine Clearance 65 mL/min (70-130); Calcium 8.3 mg/dL (7.8-10.44); Carbon Dioxide 26 mmol/L (23-31); Chloride 105 mmol/L (98-107); Estimated GFR-MDRD 87; Glucose 163 mg/dL (83-110); Hemoglobin 12.7 g/dL (12.0-16.0); Mean Corpuscular HGB CONC 32.3 g/dL (32.0-36.0); Mean Corpuscular Hemoglobin 30.7 pg (27.0-31.0); Mean Corpuscular Volume 94.8 fL (78.0-98.0); Mean Platelet Volume 7.6 fL (7.4-10.4); Platelet Count 228 thou/uL (130-400); Potassium 4.1 mmol/L (3.5-5.1); RBC Distribution Width 12.1 % (11.5-14.5); Red Blood Cell (RBC) Count 4.13 mill/uL (4.20-5.40); Sodium 139 mmol/L (136-145); White Blood Cell (WBC) Count 4.1 thou/uL (4.8-10.8)
[2020-05-10] MEDS: HumaLOG 300 UNITS/3 ML VIAL SC PRN (06:33)
[2020-05-10] MEDS ORDERED: Azithromycin 250 MG TAB PO SCH (09:00)
[2020-05-10] MEDS ORDERED: metFORMIN 500 MG TAB PO SCH (09:00)
[2020-05-10] MEDS ORDERED: Dexamethasone 4 mg/ml Vial SLOW IVP SCH (09:00)
[2020-05-10] MEDS ORDERED: Cholecalciferol 1,000 UNITS (25 MCG) TAB PO SCH (09:00)
[2020-05-10] MEDS ORDERED: Lactinex Tablet PO SCH (09:00)
[2020-05-10] MEDS: Famotidine 20 MG TAB PO SCH (09:04)
[2020-05-10] MEDS: Bisoprolol Fumarate 5 MG TAB PO SCH (09:04)
[2020-05-10] MEDS: Ascorbic Acid 500 mg Chewable Tablet PO SCH (09:04)
[2020-05-10] MEDS: Ezetimibe 10 MG TAB PO SCH (09:05)
[2020-05-10] MEDS: Amlodipine 5 MG TAB PO SCH (09:05)
[2020-05-10] MEDS: Benzonatate 100 MG CAP PO SCH ×2 (09:05→16:10)
[2020-05-10] MEDS: Cholecalciferol 1,000 UNITS (25 MCG) TAB PO SCH (09:05)
[2020-05-10] MEDS: Gabapentin 100 MG CAP PO SCH (09:05)
[2020-05-10] MEDS: Lisinopril 10 MG TAB PO SCH (09:06)
[2020-05-10] MEDS: Levothyroxine Sodium 100 MCG TAB PO SCH (09:06)
[2020-05-10] MEDS: Enoxaparin Sodium 40 MG/0.4 ML SYRINGE SC SCH (09:09)
[2020-05-10] MEDS: Magnesium Oxide 250 MG TAB PO SCH (12:00)
[2020-05-10] MEDS: Zinc Sulfate 220 MG CAP PO SCH (12:01)
[2020-05-10 13:38] VITALS: TEMP 98.3
[2020-05-10 16:51] VITALS: BP 129/75
--- NOTE | 2020-05-10 21:16 | DIS ---
DATE OF ADMISSION: 05/07/2020 DATE OF DISCHARGE: 05/10/2020 DISCHARGE DIAGNOSES: 1. Acute hypoxic respiratory failure secondary to COVID-19 pneumonia. 2. Leukopenia. CONSULTATIONS: None. PROCEDURES: None. BRIEF HISTORY OF PRESENT ILLNESS: This is a 74-year-old female with past medical history of hypertension, diabetes, and hypothyroidism, who presented to the emergency room due to hypoxia. The patient reported that she had an O2 saturation of 86% and was unable to get it above 88%. The patient reports that she had a daughter and that were recently admitted for COVID. She also reports poor appetite. She had a low-grade temperature of 99 while in the ER. Chest x-ray showed faint linear opacities in the lung bases. CTA showed no evidence of PE. She was admitted for further workup. HOSPITAL COURSE: 1. Acute hypoxic respiratory failure secondary to COVID-19 pneumonia: The patient required 2 L of oxygen while she was in the hospital. She was started on azithromycin and dexamethasone. The patient did very well with this and was eventually able to be weaned off oxygen and was saturating 94% on room air at the time of discharge. She reported minimal cough and no shortness of breath. She also reports that her appetite has improved slightly. She was thought to be stable for discharge and was sent home with azithromycin for 3 more days and dexamethasone for 5 more days. She was advised to quarantine for an additional 4 days at least until her cough resolves. 2. Leukopenia: The patient's white count was 4.1 on 05/10. This is likely secondary to COVID infection. She has no fevers. Her UA was unremarkable. DISCHARGE PHYSICAL EXAMINATION: VITAL SIGNS: Temperature 98.3, heart rate 78, respiratory rate 16, O2 saturation 93% on room air, and blood pressure 129/75. GENERAL: The patient is alert, awake, and oriented x3. CVS: Regular rate and rhythm with no murmurs, rubs, or gallops. LUNGS: The patient has bilateral crackles at the bases. ABDOMEN: Positive bowel sounds. Soft, nontender, and nondistended. EXTREMITIES: No edema. PERTINENT LABORATORY DATA: CBC on 05/10: White count 4.1, hemoglobin 12.7, hematocrit 39.2, and platelet count 228. BMP on 05/10: Normal. LFTs; AST 40, ALT 37, and alkaline phosphatase 51. Troponin I: Less than 0.010. UA: Urine glucose greater than 1000, urine ketones 80. IMAGING DATA: Chest x-ray on 05/07: Faint linear opacities in the lung bases. CTA thorax on 05/07: No evidence of PE. COVID-19 pneumonia. 2.3 cm right adrenal adenoma. DISCHARGE CONDITION: Stable. ACTIVITY: As tolerated. DIET: Regular diet. DISCHARGE MEDICATIONS: 1. Azithromycin 250 mg p.o. daily. 2. Tessalon Perles 100 mg p.o. t.i.d. p.r.n. 3. Dexamethasone 6 mg p.o. daily. The patient's hydrochlorothiazide was discontinued. DISCHARGE INSTRUCTIONS: The patient is to follow up with her PCP in a week. She should get a repeat chest x-ray in 6 weeks and repeat CBC and follow up leukopenia. Also get repeat LFTs to assess for resolution of her elevated LFT. She should also stop her hydrochlorothiazide for now since her blood pressure was 100 systolic without it. Job ID: [id number] MTDD
[2020-05-11] MEDS ORDERED: Dexamethasone 4 MG TAB PO SCH (09:00)
== END 2020-05-10 18:53 | disposition home or self-care (01) | DRG 177 ==
LOC: ERS 10:02 → 2SW 15:20
PROVIDERS: ADMIT Internal Medicine; ATTEND Internal Medicine
PROC: 8E0ZXY6 Isolation (ICD-10-PCS; principal; 2020-05-07)
DX: U07.1 COVID-19 (principal); J12.89 Other viral pneumonia; J96.01 Acute respiratory failure with hypoxia; D72.819 Decreased white blood cell count, unspecified; E11.9 Type 2 diabetes mellitus without complications; E03.9 Hypothyroidism, unspecified; I10 Essential (primary) hypertension; D35.01 Benign neoplasm of right adrenal gland; R19.7 Diarrhea, unspecified; Z90.49 Acquired absence of other specified parts of digestive tract; Z90.710 Acquired absence of both cervix and uterus; Z88.1 Allergy status to other antibiotic agents; Z88.5 Allergy status to narcotic agent; Z88.8 Allergy status to other drugs, medicaments and biological substances; Z79.899 Other long term (current) drug therapy; Z79.890 Hormone replacement therapy; Z79.84 Long term (current) use of oral hypoglycemic drugs
CPT/HCPCS: 36415; 36416; 71045; 71275; 80048; 80053; 81001; 82728; 82805; 83605; 83735; 83880; 84484; 85025; 85379; 85610; 85730; 86140; 93005; J0456; J1100; J1650; J2405; J7050; Q0163; Q9967

== ENCOUNTER 2020-06-19 09:59 | Outpatient (CLI) | payer MEDICARE ==
[2020-06-19 11:03] LABS: Estimated GFR-MDRD - POC Greater than 90
--- NOTE | 2020-06-19 13:07 | CT ---
EXAM: CT OF THE CHEST WITH CONTRAST HISTORY: Lung nodule and adrenal mass seen on prior imaging COMPARISON: 05/07/2020 TECHNIQUE: Multiple contiguous axial images were obtained in a CT the chest with contrast. Coronal an d sagittal reformats were performed. FINDINGS: HEART: Normal in size without focal cardiac abnormality MEDIASTINUM: No hilar or mediastinal lymphadenopathy. LUNGS: No nodules or masses. The previously seen peripheral opacities in the lungs have nearly comple tely resolved. PLEURAL SPACE: No pneumothorax or pleural effusion. CHEST WALL SOFT TISSUES: Unremarkable OSSEOUS STRUCTURES: Degenerative changes in the spine. IMPRESSION: Near complete resolution of previously seen pulmonary infiltrates CT ABDOMEN/PELVIS WITHOUT AND WITH CONTRAST: CLINICAL HISTORY: Lung nodule and adrenal mass seen on prior imaging. TECHNIQUE: Multiple contiguous axial images were obtained and a CT of the abdomen and pelvis without and with IV contrast. Postcontrast images were obtained in the nephrographic and excretory phases. Sagittal and coronal reformats were performed. COMPARISON: 05/07/2020 FINDINGS: Kidneys and Urinary Tract: Right kidney and ureter: No calculi. No hydronephrosis or hydroureter. No renal mass or other lesions . No urothelial lesions: no filling defect, dilation, stricture or wall thickening. Left kidney and ureter: Tiny 2 mm nonobstructing calcifications in the kidney. No hydronephrosis or h ydroureter. No renal mass or other lesions. No urothelial lesions: no filling defect, dilation, stricture or wall thickening. Urinary bladder: Normal, no calculi, mass or other lesions. Remainder of Abdomen and Pelvis: Liver: Normal. Gallbladder and biliary system: Status post cholecystectomy. No biliary ductal dilatation. Spleen: Normal. Pancreas: Normal. Adrenal glands: There is a 2.2 cm right adrenal oval-shaped mass with a mean Hounsfield unit value of 3 on the noncontrast examination. This is consistent with a fat-containing adrenal adenoma. No left adrenal mass. GI tract: Scattered diverticula in the colon. Abdominal aorta and its major branches: Atherosclerotic calcifications. No aneurysm. Peritoneum/retroperitoneum: Normal. No ascites. No adenopathy. Pelvic structures: Status post hysterectomy. No pelvic lymphadenopathy. Body wall and musculoskeletal: Degenerative changes in the spine. IMPRESSION: 1. Nonobstructing left kidney stones 2. Right adrenal adenoma 3. Diverticulosis
== END 2020-06-19 10:00 | disposition home or self-care (01) ==
LOC: BICCT 09:59
PROVIDERS: ATTEND Internal Medicine Pulmonary Disease
DX: E27.8 Other specified disorders of adrenal gland (principal); R91.1 Solitary pulmonary nodule; R91.8 Other nonspecific abnormal finding of lung field; N20.0 Calculus of kidney; K57.90 Diverticulosis of intestine, part unspecified, without perforation or abscess without bleeding
CPT/HCPCS: 71260; 74178; 82565

== ENCOUNTER 2020-09-23 09:54 | Outpatient (CLI) | payer MEDICARE ==
--- NOTE | 2020-09-23 10:38 | MMO ---
Bilateral MAMMO Bilat Diag DDI+ANNMARIE. CLINICAL HISTORY: Patient is 74 years old and is seen for diagnostic exam. The patient has the following family history of breast cancer: sister, at age 50. The patient has no personal history of cancer. The patient has a history of right Excisional Biopsy in 2003 - benign and right cyst aspiration in 1998 - benign. VIEWS: The views performed were: bilateral craniocaudal with tomosynthesis; bilateral mediolateral oblique with tomosynthesis; and bilateral mediolateral with tomosynthesis. FILMS COMPARED: The present examination has been compared to prior imaging studies performed at [facility] on 12/30/2016, 02/21/2018, 02/28/2019 and 09/23/2020. This study has been interpreted with the assistance of computer-aided detection. MAMMOGRAM FINDINGS: The breasts are heterogeneously dense, which could obscure a lesion on mammography. Benign calcifications are noted bilaterally. No mammographic or sonograhic abnormality is seen at the site of pain in the right breast. There are no suspicious masses, suspicious calcifications, or new areas of architectural distortion. IMPRESSION: THERE IS NO MAMMOGRAPHIC EVIDENCE OF MALIGNANCY. A ROUTINE FOLLOW-UP MAMMOGRAM IN 1 YEAR IS RECOMMENDED. THE RESULTS OF THIS EXAM WERE SENT TO THE PATIENT. ACR BI-RADS Category 2 - Benign finding MAMMOGRAPHY NOTE: 1. A negative mammogram report should not delay a biopsy if a dominant of clinically suspicious mass is present. 2. Approximately 10% to 15% of breast cancers are not detected by mammography. 3. Adenosis and dense breasts may obscure an underlying neoplasm. Reported by: MELVIN BROOKS MD Electonically Signed: [id number]
--- NOTE | 2020-09-23 11:00 | ULT ---
LIMITED RIGHT BREAST ULTRASOUND: HISTORY: Pain in the right breast. FINDINGS: Correlation is made with mammograms of the same date. Sonographic evaluation of the region of pain at the 7, 8, 9, 10, and 11 o'clock positions demonstrate s no abnormality. IMPRESSION: BIRADS category 2 - benign findings. Return to annual mammographic screening. POS: OFF
== END 2020-09-23 09:55 | disposition home or self-care (01) ==
LOC: BICMAMMO 09:54
PROVIDERS: ATTEND Family Medicine
DX: N64.4 Mastodynia (principal)
CPT/HCPCS: 76642; 77066; G0279

== ENCOUNTER 2021-03-19 10:40 | Outpatient (CLI) | payer MEDICARE | END 2021-03-19 10:41 | disposition home or self-care (01) | LOC: BICRAD 10:40 | PROVIDERS: ATTEND Family Medicine | DX: R05 Cough (principal) | CPT/HCPCS: 71046 ==

== ENCOUNTER 2021-09-14 11:26 | Outpatient (CLI) | payer MEDICARE | END 2021-09-14 11:27 | disposition home or self-care (01) | LOC: BICRAD 11:26 | PROVIDERS: ATTEND Family Medicine | DX: M54.6 Pain in thoracic spine (principal); M47.814 Spondylosis without myelopathy or radiculopathy, thoracic region | CPT/HCPCS: 71046; 72072 ==

== ENCOUNTER 2021-09-27 14:27 | Outpatient (CLI) | payer MEDICARE | END 2021-09-27 14:28 | disposition home or self-care (01) | LOC: BICMAMMO 14:27 | PROVIDERS: ATTEND Family Medicine | DX: M85.851 Other specified disorders of bone density and structure, right thigh (principal); M85.852 Other specified disorders of bone density and structure, left thigh | CPT/HCPCS: 77080 ==

== ENCOUNTER 2021-11-05 14:15 | Observation (INO) | payer MEDICARE ==
[2021-11-05 15:32] LABS: #Basophils 0.1 thou/uL (0.0-0.2); #Eosinphils 0.4 thou/uL (0.0-0.7); #Monocytes 0.7 thou/uL (0.11-0.59); #Neutrophils 3.8 thou/uL (1.40-6.50); %Basophils 1.7 % (0.0-1.0); %Eosinophils 4.8 % (0.0-10.0); %Monocytes 8.2 % (0.0-10.0); %Neutrophils 47.3 % (42.0-75.0); Hemoglobin 14.9 g/dL (12.0-16.0); Mean Corpuscular HGB CONC 33.8 g/dL (32.0-36.0); Mean Corpuscular Hemoglobin 34.5 pg (27.0-31.0); Mean Platelet Volume 7.3 fL (7.4-10.4); Platelet Count 231 thou/uL (130-400); RBC Distribution Width 12.6 % (11.5-14.5); Red Blood Cell (RBC) Count 4.32 mill/uL (4.20-5.40)
[2021-11-05 15:56] LABS: ALT (SGPT) 21 U/L (8-55); AST (SGOT) 17 U/L (5-34); Albumin 4.2 g/dL (3.4-4.8); Alkaline Phosphatase 72 U/L (40-110); Anion Gap 15 mmol/L (10-20); BUN (Urea Nitrogen) 15 mg/dL (9.8-20.1); Bilirubin, Total 0.3 mg/dL (0.2-1.2); Calc. Creatinine Clearance 0 mL/min (70-130); Carbon Dioxide 30 mmol/L (23-31); Chloride 100 mmol/L (98-107); Globulin 3.3 g/dL (2.4-3.5); Glucose 102 mg/dL (83-110); Lipase 41 U/L (8-78); Potassium 3.7 mmol/L (3.5-5.1); Protein, Total 7.5 g/dL (5.8-8.1); Sodium 141 mmol/L (136-145)
[2021-11-05 20:42] LABS: Troponin I Less than 0.010 ng/mL (< 0.028)
[2021-11-05 22:56] VITALS: BMI 23.3
[2021-11-05 23:47] LABS: Troponin I Less than 0.010 ng/mL (< 0.028)
[2021-11-06] MEDS ORDERED: Gabapentin 300 MG CAP PO SCH (00:45)
[2021-11-06] MEDS ORDERED: Acetaminophen 325 MG TAB PO PRN (05:34)
[2021-11-06] MEDS ORDERED: Ondansetron PF 4 MG/2 ML Vial IVP PRN (05:34)
[2021-11-06] MEDS ORDERED: Nitroglycerin 0.4 MG TAB (25 Tab Bottle) SL PRN (05:34)
[2021-11-06] MEDS ORDERED: Dextrose 50% Abboject 50 ML SYRINGE SLOW IVP PRN (05:40)
[2021-11-06] MEDS ORDERED: HumaLOG 300 UNITS/3 ML VIAL SC PRN ×2 (05:40)
[2021-11-06] MEDS ORDERED: Dextrose 5% in Water 1,000 ML IV PRN (05:40)
[2021-11-06] MEDS ORDERED: Amlodipine 5 MG TAB PO PRN (05:43)
[2021-11-06 06:09] LABS: #Basophils 0.1 thou/uL (0.0-0.2); #Eosinphils 0.4 thou/uL (0.0-0.7); #Lymphocytes 3.6 thou/uL (1.20-3.40); #Monocytes 0.6 thou/uL (0.11-0.59); #Neutrophils 2.6 thou/uL (1.40-6.50); %Basophils 1.1 % (0.0-1.0); %Eosinophils 6.1 % (0.0-10.0); %Monocytes 8.5 % (0.0-10.0); %Neutrophils 35.4 % (42.0-75.0); Mean Corpuscular HGB CONC 33.7 g/dL (32.0-36.0); Mean Corpuscular Hemoglobin 34.9 pg (27.0-31.0); Mean Platelet Volume 7.2 fL (7.4-10.4); Platelet Count 208 thou/uL (130-400); RBC Distribution Width 12.5 % (11.5-14.5); Red Blood Cell (RBC) Count 3.73 mill/uL (4.20-5.40); White Blood Cell (WBC) Count 7.3 thou/uL (4.8-10.8)
[2021-11-06 06:27] LABS: Anion Gap 15 mmol/L (10-20); BUN (Urea Nitrogen) 15 mg/dL (9.8-20.1); Calc. Creatinine Clearance 58 mL/min (70-130); Calcium 8.7 mg/dL (7.8-10.44); Carbon Dioxide 26 mmol/L (23-31); Chloride 103 mmol/L (98-107); Glucose 141 mg/dL (83-110); Potassium 3.8 mmol/L (3.5-5.1); Sodium 140 mmol/L (136-145)
[2021-11-06 06:42] LABS: Cardiac Risk 3.9 (Less than 4.5)
[2021-11-06] MEDS ORDERED: Enoxaparin Sodium 40 MG/0.4 ML SYRINGE SC SCH (09:00)
[2021-11-06] MEDS ORDERED: Amlodipine 5 MG TAB PO SCH (09:00)
[2021-11-06] MEDS ORDERED: Bisoprolol Fumarate 5 MG TAB PO SCH (09:00)
[2021-11-06] MEDS ORDERED: Aspirin 81 mg Enteric Coated Tablet PO SCH (09:00)
[2021-11-06] MEDS ORDERED: Amitriptyline HCl 10 MG TAB PO SCH (09:00)
[2021-11-06] MEDS ORDERED: Ezetimibe 10 MG TAB PO SCH (09:00)
[2021-11-06] MEDS ORDERED: ADENOSINE 60 MG/20 ML VIAL ONE (12:54)
[2021-11-06 15:43] VITALS: BP 126/66; TEMP 98.2
== END 2021-11-06 17:15 | disposition home or self-care (01) ==
LOC: ERS 14:15 → NEURO 17:21
PROVIDERS: ADMIT Family Medicine; ATTEND Family Medicine
DX: R07.89 Other chest pain (principal); M25.512 Pain in left shoulder; I10 Essential (primary) hypertension; E11.9 Type 2 diabetes mellitus without complications; E03.9 Hypothyroidism, unspecified; Z87.891 Personal history of nicotine dependence; Z79.810 Long term (current) use of selective estrogen receptor modulators (SERMs); Z79.82 Long term (current) use of aspirin; Z79.84 Long term (current) use of oral hypoglycemic drugs; Z79.899 Other long term (current) drug therapy; Z88.0 Allergy status to penicillin; Z88.1 Allergy status to other antibiotic agents; Z88.4 Allergy status to anesthetic agent; Z88.5 Allergy status to narcotic agent
CPT/HCPCS: 71045; 78452; 80048; 80053; 80061; 82962; 83690; 84484 ×2; 85025 ×2; 93005; 93017; A9500; G0378 ×3; 36415; 36416; J0153

== ENCOUNTER 2022-07-21 07:51 | Outpatient (CLI) | payer MEDICARE | END 2022-07-21 07:52 | disposition home or self-care (01) | LOC: BICMRI 07:51 | PROVIDERS: ATTEND Nurse Practitioner Family | DX: M51.14 Intervertebral disc disorders with radiculopathy, thoracic region (principal); M51.25 Other intervertebral disc displacement, thoracolumbar region | CPT/HCPCS: 72146 ==

== ENCOUNTER 2023-01-03 10:33 | Outpatient (CLI) | payer MEDICARE | END 2023-01-03 10:34 | disposition home or self-care (01) | LOC: NM 10:33 | PROVIDERS: ATTEND Specialist | DX: M17.11 Unilateral primary osteoarthritis, right knee (principal); T84.84XA Pain due to internal orthopedic prosthetic devices, implants and grafts, initial encounter; Z96.651 Presence of right artificial knee joint | CPT/HCPCS: 78315; A9503 ==

== ENCOUNTER 2023-02-23 11:10 | Outpatient (CLI) | payer MEDICARE | END 2023-02-23 11:11 | disposition home or self-care (01) | LOC: BICMRI 11:10 | PROVIDERS: ATTEND Nurse Practitioner Family | DX: M47.816 Spondylosis without myelopathy or radiculopathy, lumbar region (principal); M54.14 Radiculopathy, thoracic region; M51.24 Other intervertebral disc displacement, thoracic region; M51.35 Other intervertebral disc degeneration, thoracolumbar region; M48.05 Spinal stenosis, thoracolumbar region; M48.061 Spinal stenosis, lumbar region without neurogenic claudication; M51.36 Other intervertebral disc degeneration, lumbar region | CPT/HCPCS: 72146; 72148 ==

== ENCOUNTER 2023-06-01 19:40 | Inpatient (IN) | payer MEDICARE ==
[~2023-06-01 19:40] MED LIST changes: -Iopamidol 370 76% 100 ML VIAL ONE; +Iopamidol-370 76% 500 ML MDV (1 ML CHARGE) ONE
[2023-06-01 20:17] LABS: #Basophils 0.1 thou/uL (0.0-0.2); #Eosinphils 0.2 thou/uL (0.0-0.7); #Monocytes 0.5 thou/uL (0.11-0.59); %Eosinophils 3.8 % (0.0-10.0); %Lymphocytes 21.4 % (21.0-51.0); %Monocytes 8.5 % (0.0-10.0); %Neutrophils 64.6 % (42.0-75.0); Hematocrit 35.5 % (36.0-47.0); Hemoglobin 11.8 g/dL (12.0-16.0); Mean Corpuscular HGB CONC 33.2 g/dL (32.0-36.0); Mean Corpuscular Hemoglobin 33.3 pg (27.0-31.0); Mean Corpuscular Volume 100.3 fl (78.0-98.0); Mean Platelet Volume 9.4 fL (7.4-10.4); Platelet Count 214 10x3/uL (130-400); RBC Distribution Width 14.8 % (11.5-14.5); Red Blood Cell (RBC) Count 3.54 mill/uL (4.20-5.40); White Blood Cell (WBC) Count 6.1 10x3/uL (4.8-10.8)
[2023-06-01 20:41] LABS: ALT (SGPT) 18 U/L (8-55); AST (SGOT) 21 U/L (5-34); Alkaline Phosphatase 58 U/L (40-110); Anion Gap 14 mmol/L (10-20); BUN (Urea Nitrogen) 9 mg/dL (9.8-20.1); Bilirubin, Total 0.6 mg/dL (0.2-1.2); Calc. Creatinine Clearance 0 mL/min (70-130); Carbon Dioxide 25 mmol/L (23-31); Chloride 102 mmol/L (98-107); Estimated GFR 86; Globulin 2.9 g/dL (2.4-3.5); Glucose 218 mg/dL (83-110); Potassium 4.1 mmol/L (3.5-5.1); Protein, Total 6.9 g/dL (5.8-8.1); Sodium 137 mmol/L (136-145)
[2023-06-01 20:51] LABS: Troponin I Less than 0.010 ng/mL (< 0.028)
[2023-06-01 22:23] LABS: Bacteria/HPF None Seen HPF (None Seen); Bilirubin Negative (Negative); Blood, Urine Negative (Negative); CAUTI Indications for Culture Alt mental st,lethar; Clarity Clear (Clear); Glucose, Urine (Dipstick) 200 mg/dL (Negative); Ketone, Urine 20 mg/dL (Negative); Leukocyte Negative Leu/uL (Negative); Nitrite Negative (Negative); Protein, Urine (Dipstick) Negative (Neg-Trace); RBC/HPF 0-3 HPF (0-3); Specific Gravity, Urine 1.012 (1.002-1.036); Squamous Epithelial None Seen HPF (0-3); Urobilinogen Normal mg/dL (Less than 2); WBC/HPF 0-3 HPF (0-3); pH, Urine 6.5 (5.0-9.0)
[2023-06-01 22:24] LABS: Urine Culture Reflex No No
[2023-06-01 23:25] LABS: Lactic Acid 2.4 mmol/L (0.5-2.2)
[2023-06-01] MEDS ORDERED: Famotidine 20 MG TAB ONE (23:33)
[2023-06-02] MEDS ORDERED: HYDROcodone/Acetaminophen 5/325 mg Tablet ONE (01:14)
[2023-06-02] MEDS ORDERED: Ondansetron ODT 4 MG TAB PO PRN (04:22)
[2023-06-02] MEDS ORDERED: Acetaminophen 325 MG TAB PO PRN (04:22)
[2023-06-02] MEDS ORDERED: Acetaminophen 650 MG Suppository PR PRN (04:22)
[2023-06-02] MEDS ORDERED: Ondansetron PF 4 MG/2 ML Vial IVP PRN (04:22)
[2023-06-02] MEDS ORDERED: Glucagon 1 MG/ML KIT IM PRN (04:26)
[2023-06-02] MEDS ORDERED: HumaLOG 300 UNITS/3 ML VIAL SC PRN ×2 (04:26)
[2023-06-02] MEDS ORDERED: Dextrose 50% Abboject 50 ML SYRINGE SLOW IVP PRN (04:26)
[2023-06-02] MEDS ORDERED: Dextrose 5% in Water 1,000 ML IV PRN (04:26)
[2023-06-02 05:53] VITALS: BMI 21.8
[2023-06-02] MEDS ORDERED: Iopamidol 370 76% 100 ML VIAL ONE (09:30)
[2023-06-02] MEDS ORDERED: Mag-Al Plus 1200 MG/1200 MG/120 MG/30 ML UDCUP PO PRN (09:44)
[2023-06-02] MEDS ORDERED: Pantoprazole 40 MG VIAL IVP SCH (10:00)
[2023-06-02] MEDS ORDERED: ALPRAZolam 0.5 MG TAB PO PRN (10:04)
[2023-06-02 10:31] LABS: #Basophils 0.1 thou/uL (0.0-0.2); #Eosinphils 0.1 thou/uL (0.0-0.7); #Monocytes 0.6 thou/uL (0.11-0.59); #Neutrophils 4.7 thou/uL (1.40-6.50); %Basophils 0.7 % (0.0-1.0); %Eosinophils 1.9 % (0.0-10.0); %Lymphocytes 23.9 % (21.0-51.0); %Monocytes 8.8 % (0.0-10.0); %Neutrophils 64.1 % (42.0-75.0); Hematocrit 37.4 % (36.0-47.0); Hemoglobin 12.4 g/dL (12.0-16.0); Mean Corpuscular HGB CONC 33.2 g/dL (32.0-36.0); Mean Corpuscular Hemoglobin 32.7 pg (27.0-31.0); Mean Corpuscular Volume 98.7 fl (78.0-98.0); Mean Platelet Volume 9.8 fL (7.4-10.4); Platelet Count 206 10x3/uL (130-400); RBC Distribution Width 14.6 % (11.5-14.5); Red Blood Cell (RBC) Count 3.79 mill/uL (4.20-5.40); White Blood Cell (WBC) Count 7.3 10x3/uL (4.8-10.8)
[2023-06-02 10:33] LABS: PTT 34.4 sec (22.9-36.1)
[2023-06-02] MEDS ORDERED: Lidocaine 1% (PF) 30 ML VIAL ONE (13:49)
[2023-06-02] MEDS: HYDROcodone/Acetaminophen 5/325 mg Tablet PO PRN ×2 (15:50→21:05)
[2023-06-02 16:03] LABS: Hematocrit 36.7 % (36.0-47.0); Hemoglobin 12.4 g/dL (12.0-16.0); Mean Corpuscular HGB CONC 33.8 g/dL (32.0-36.0); Mean Corpuscular Hemoglobin 33.5 pg (27.0-31.0); Mean Corpuscular Volume 99.2 fl (78.0-98.0); Mean Platelet Volume 9.4 fL (7.4-10.4); Platelet Count 203 10x3/uL (130-400); RBC Distribution Width 14.8 % (11.5-14.5); White Blood Cell (WBC) Count 6.8 10x3/uL (4.8-10.8)
[2023-06-02] MEDS: Pantoprazole 40 MG VIAL IVP SCH (21:05)
[2023-06-03 03:58] LABS: #Basophils 0.1 thou/uL (0.0-0.2); #Eosinphils 0.2 thou/uL (0.0-0.7); #Monocytes 0.7 thou/uL (0.11-0.59); #Neutrophils 2.6 thou/uL (1.40-6.50); %Basophils 1.2 % (0.0-1.0); %Eosinophils 3.9 % (0.0-10.0); %Lymphocytes 36.8 % (21.0-51.0); %Monocytes 11.7 % (0.0-10.0); Hematocrit 36.5 % (36.0-47.0); Hemoglobin 12.1 g/dL (12.0-16.0); Mean Corpuscular HGB CONC 33.2 g/dL (32.0-36.0); Mean Corpuscular Hemoglobin 33.5 pg (27.0-31.0); Mean Corpuscular Volume 101.1 fl (78.0-98.0); Mean Platelet Volume 9.6 fL (7.4-10.4); Platelet Count 207 10x3/uL (130-400); RBC Distribution Width 14.9 % (11.5-14.5); Red Blood Cell (RBC) Count 3.61 mill/uL (4.20-5.40); White Blood Cell (WBC) Count 5.6 10x3/uL (4.8-10.8)
[2023-06-03 04:22] LABS: Lactic Acid 1.2 mmol/L (0.5-2.2)
[2023-06-03 04:29] LABS: Anion Gap 12 mmol/L (10-20); BUN (Urea Nitrogen) 9 mg/dL (9.8-20.1); Calc. Creatinine Clearance 65 mL/min (70-130); Calcium 8.8 mg/dL (7.8-10.44); Carbon Dioxide 26 mmol/L (23-31); Chloride 107 mmol/L (98-107); Estimated GFR 89; Glucose 132 mg/dL (83-110); Sodium 142 mmol/L (136-145)
[2023-06-03] MEDS: Pantoprazole 40 MG VIAL IVP SCH ×2 (09:09→21:05)
[2023-06-03] MEDS ORDERED: Potassium Chloride 40 MEQ in Premix Bag 1 BAG IVPB SCH (11:00)
[2023-06-03] MEDS: HYDROcodone/Acetaminophen 5/325 mg Tablet PO PRN ×3 (11:13→21:06)
[2023-06-03] MEDS: Potassium Chloride 10 MEQ in Premix Bag 1 BAG IVPB SCH ×4 (11:19→16:15)
[2023-06-04 04:44] LABS: #Basophils 0.1 thou/uL (0.0-0.2); #Eosinphils 0.3 thou/uL (0.0-0.7); #Monocytes 0.8 thou/uL (0.11-0.59); #Neutrophils 3.5 thou/uL (1.40-6.50); %Basophils 0.9 % (0.0-1.0); %Eosinophils 4.4 % (0.0-10.0); %Lymphocytes 39.1 % (21.0-51.0); %Monocytes 10.1 % (0.0-10.0); %Neutrophils 45.2 % (42.0-75.0); Hematocrit 33.9 % (36.0-47.0); Hemoglobin 11.2 g/dL (12.0-16.0); Mean Platelet Volume 9.4 fL (7.4-10.4); Platelet Count 179 10x3/uL (130-400); RBC Distribution Width 14.9 % (11.5-14.5); Red Blood Cell (RBC) Count 3.39 mill/uL (4.20-5.40); White Blood Cell (WBC) Count 7.7 10x3/uL (4.8-10.8)
[2023-06-04 05:05] LABS: ALT (SGPT) 11 U/L (8-55); AST (SGOT) 19 U/L (5-34); Albumin 3.5 g/dL (3.4-4.8); Alkaline Phosphatase 54 U/L (40-110); Anion Gap 13 mmol/L (10-20); BUN (Urea Nitrogen) 9 mg/dL (9.8-20.1); Bilirubin, Total 0.4 mg/dL (0.2-1.2); Calc. Creatinine Clearance 69 mL/min (70-130); Calcium 8.5 mg/dL (7.8-10.44); Carbon Dioxide 22 mmol/L (23-31); Chloride 104 mmol/L (98-107); Estimated GFR 90; Globulin 2.6 g/dL (2.4-3.5); Glucose 142 mg/dL (83-110); Magnesium 1.9 mg/dL (1.6-2.6); Potassium 3.2 mmol/L (3.5-5.1); Protein, Total 6.1 g/dL (5.8-8.1); Sodium 136 mmol/L (136-145)
[2023-06-04] MEDS: Pantoprazole 40 MG VIAL IVP SCH ×2 (10:14→20:56)
[2023-06-04] MEDS: HYDROcodone/Acetaminophen 5/325 mg Tablet PO PRN ×4 (10:15→22:54)
[2023-06-04] MEDS ORDERED: Apixaban 5 MG TAB PO SCH (10:45)
[2023-06-04] MEDS: Apixaban 5 MG TAB PO SCH (20:56)
[2023-06-05] MEDS: HYDROcodone/Acetaminophen 5/325 mg Tablet PO PRN ×2 (04:13→11:52)
[2023-06-05 04:35] LABS: #Basophils 0.1 thou/uL (0.0-0.2); #Eosinphils 0.4 thou/uL (0.0-0.7); #Monocytes 0.6 thou/uL (0.11-0.59); #Neutrophils 2.5 thou/uL (1.40-6.50); %Eosinophils 6.6 % (0.0-10.0); %Monocytes 10.3 % (0.0-10.0); %Neutrophils 43.9 % (42.0-75.0); Hematocrit 35.5 % (36.0-47.0); Hemoglobin 11.9 g/dL (12.0-16.0); Mean Corpuscular HGB CONC 33.5 g/dL (32.0-36.0); Mean Corpuscular Hemoglobin 33.3 pg (27.0-31.0); Mean Corpuscular Volume 99.4 fl (78.0-98.0); Mean Platelet Volume 9.8 fL (7.4-10.4); Platelet Count 183 10x3/uL (130-400); RBC Distribution Width 14.6 % (11.5-14.5); Red Blood Cell (RBC) Count 3.57 mill/uL (4.20-5.40); White Blood Cell (WBC) Count 5.7 10x3/uL (4.8-10.8)
[2023-06-05 05:01] LABS: ALT (SGPT) 11 U/L (8-55); AST (SGOT) 17 U/L (5-34); Albumin 3.5 g/dL (3.4-4.8); Alkaline Phosphatase 56 U/L (40-110); Anion Gap 12 mmol/L (10-20); BUN (Urea Nitrogen) 7 mg/dL (9.8-20.1); Bilirubin, Total 0.7 mg/dL (0.2-1.2); Calc. Creatinine Clearance 62 mL/min (70-130); Calcium 8.8 mg/dL (7.8-10.44); Carbon Dioxide 25 mmol/L (23-31); Chloride 104 mmol/L (98-107); Estimated GFR 86; Globulin 2.7 g/dL (2.4-3.5); Glucose 139 mg/dL (83-110); Magnesium 1.9 mg/dL (1.6-2.6); Potassium 3.3 mmol/L (3.5-5.1); Protein, Total 6.2 g/dL (5.8-8.1); Sodium 138 mmol/L (136-145)
[2023-06-05] MEDS: Apixaban 5 MG TAB PO SCH ×2 (07:56→16:28)
[2023-06-05] MEDS: Pantoprazole 40 MG VIAL IVP SCH (07:56)
[2023-06-05] MEDS ORDERED: Potassium Chloride 20 MEQ TAB PO SCH (08:00)
[2023-06-05] MEDS ORDERED: Levothyroxine Sodium 100 MCG TAB PO SCH (09:00)
[2023-06-05 16:00] VITALS: BP 151/72; TEMP 98.3
[2023-06-11] MEDS ORDERED: Apixaban 5 MG TAB PO SCH (21:00)
== END 2023-06-05 17:15 | disposition home or self-care (01) | DRG 300 ==
LOC: ERS 19:40 → ERHOLD 06-02 03:17 → T4-A 06-02 07:56 → 2NO 06-02 12:45 → OBSVTOIN 06-02 13:09
PROVIDERS: ADMIT Student in an Organized Health Care Education/Training Program; ATTEND Internal Medicine
PROC: 06H03DZ Insertion of Intraluminal Device into Inferior Vena Cava, Percutaneous Approach (ICD-10-PCS; principal; 2023-06-02)
DX: T81.718A Complication of other artery following a procedure, not elsewhere classified, initial encounter (principal); I82.431 Acute embolism and thrombosis of right popliteal vein; K92.2 Gastrointestinal hemorrhage, unspecified; I82.441 Acute embolism and thrombosis of right tibial vein; I26.99 Other pulmonary embolism without acute cor pulmonale; E11.9 Type 2 diabetes mellitus without complications; E03.9 Hypothyroidism, unspecified; I10 Essential (primary) hypertension; Z96.651 Presence of right artificial knee joint; E87.6 Hypokalemia; Z88.1 Allergy status to other antibiotic agents; Z88.8 Allergy status to other drugs, medicaments and biological substances; Z79.01 Long term (current) use of anticoagulants; Z79.84 Long term (current) use of oral hypoglycemic drugs; Z85.3 Personal history of malignant neoplasm of breast; Z90.49 Acquired absence of other specified parts of digestive tract; Z98.890 Other specified postprocedural states
CPT/HCPCS: 36415; 36416; 37191; 71045; 71275; 80048; 80053; 81001; 82274; 83605; 83735; 84484; 85025; 85379; 85610; 85730; 86850; 86900; 86901; 93005; 93306; 93970; 96372; 96374; C1769; C1880; C9113; G0378; J1650; J2001; J3480; Q0162; Q9967

== ENCOUNTER 2023-06-20 21:56 | Emergency (ER) | payer MEDICARE ==
[2023-06-20] MEDS ORDERED: Ondansetron PF 4 MG/2 ML Vial ONE (22:31)
[2023-06-20] MEDS ORDERED: Ketorolac Tromethamine 30 MG/ML VIAL ONE (22:31)
[2023-06-20] MEDS ORDERED: Morphine 4 MG/ML VIAL ONE (22:31)
[2023-06-20 22:41] LABS: #Basophils 0.1 thou/uL (0.0-0.2); #Eosinphils 0.4 thou/uL (0.0-0.7); #Monocytes 0.7 thou/uL (0.11-0.59); #Neutrophils 3.1 thou/uL (1.40-6.50); %Basophils 1.5 % (0.0-1.0); %Eosinophils 5.9 % (0.0-10.0); %Lymphocytes 33.7 % (21.0-51.0); %Monocytes 10.4 % (0.0-10.0); %Neutrophils 48.2 % (42.0-75.0); Hematocrit 38.6 % (36.0-47.0); Hemoglobin 12.8 g/dL (12.0-16.0); Mean Corpuscular HGB CONC 33.2 g/dL (32.0-36.0); Mean Corpuscular Hemoglobin 32.6 pg (27.0-31.0); Mean Corpuscular Volume 98.2 fl (78.0-98.0); Mean Platelet Volume 9.6 fL (7.4-10.4); Platelet Count 225 10x3/uL (130-400); Red Blood Cell (RBC) Count 3.93 mill/uL (4.20-5.40); White Blood Cell (WBC) Count 6.5 10x3/uL (4.8-10.8)
[2023-06-20 23:07] LABS: ALT (SGPT) 12 U/L (8-55); AST (SGOT) 15 U/L (5-34); Alkaline Phosphatase 81 U/L (40-110); Anion Gap 15 mmol/L (10-20); BUN (Urea Nitrogen) 11 mg/dL (9.8-20.1); Bilirubin, Total 0.4 mg/dL (0.2-1.2); Calc. Creatinine Clearance 0 mL/min (70-130); Calcium 9.3 mg/dL (7.8-10.44); Carbon Dioxide 24 mmol/L (23-31); Chloride 101 mmol/L (98-107); Estimated GFR 70; Globulin 2.9 g/dL (2.4-3.5); Glucose 216 mg/dL (83-110); Lipase 27 U/L (8-78); Magnesium 1.7 mg/dL (1.6-2.6); Potassium 3.4 mmol/L (3.5-5.1); Protein, Total 6.9 g/dL (5.8-8.1); Sodium 137 mmol/L (136-145)
[2023-06-20 23:08] LABS: Troponin I Less than 0.010 ng/mL (< 0.028)
== END 2023-06-20 23:49 | disposition home or self-care (01) ==
LOC: ERS 21:56
DX: R10.11 Right upper quadrant pain (principal); E11.9 Type 2 diabetes mellitus without complications; E03.9 Hypothyroidism, unspecified; I10 Essential (primary) hypertension; Z79.84 Long term (current) use of oral hypoglycemic drugs; Z79.899 Other long term (current) drug therapy; Z79.82 Long term (current) use of aspirin; Z79.01 Long term (current) use of anticoagulants
CPT/HCPCS: 36415; 71275; 74177; 80053; 83690; 83735; 83880; 84443; 84484; 85025; 93005; 96374; 96375; 99214; G0463; J1885; J2270; J2405; Q9967

== ENCOUNTER 2023-12-04 14:28 | Outpatient (CLI) | payer MEDICARE | END 2023-12-04 14:29 | disposition home or self-care (01) | LOC: BICMAMMO 14:28 | PROVIDERS: ATTEND Family Medicine | DX: Z12.31 Encounter for screening mammogram for malignant neoplasm of breast (principal); Z13.820 Encounter for screening for osteoporosis; M85.852 Other specified disorders of bone density and structure, left thigh; M85.851 Other specified disorders of bone density and structure, right thigh; Z91.89 Other specified personal risk factors, not elsewhere classified; Z80.3 Family history of malignant neoplasm of breast; Z78.0 Asymptomatic menopausal state | CPT/HCPCS: 77063; 77067; 77080 ==